=== PATIENT | female | born 1990 | race Caucasian/White ===

== ENCOUNTER 2022-08-15 11:26 | Outpatient (CLI) | payer OTHER, SELFPAY ==
[2022-08-15 09:29] LABS: Cholesterol* 189 mg/dL (90-199); Triglycerides* 118 mg/dL (40-149)
[2022-08-15 09:30] LABS: HDL Cholesterol* 69 mg/dL (>=50); LDL Cholesterol Calculated 96 mg/dL (<100)
== END 2022-08-15 11:27 | disposition home or self-care (01) ==
PROVIDERS: PCP Family Medicine; Visit Provider Family Medicine
DX: Z13.6 Encounter for screening for cardiovascular disorders (principal)
CPT/HCPCS: 80061

== ENCOUNTER 2022-09-06 22:18 | Outpatient (CLI) | payer OTHER, SELFPAY ==
--- OUTSIDE RECORDS SUMMARY | 2022-09-06 22:23 | XMS_ITS | Clinical Summary ---
:1990 Author Organization [employer] Address [address] [place] [address] Phone Care Team Providers Name Role Phone Rosario Luevano APRN, KAEL Primary Care Provider [phone] Allergies Active Allergy Reactions Severity Noted Date Comments Cefaclor Hives 12/09/2016 Medications Medication Sig Dispensed Refills Start Date End Date Status norethindrone (Micronor, Take 1 Tablet by 28 Tablet 0 02/23/20 21 Active Faith, Jahaira) 0.35 MG mouth one time a tabletIndications: Oral day. contraceptive pill surveillance traZODone (Desyrel) 50 Take 1 Tablet by 30 Tablet 0 02/22/2021 Active MG tabletIndications: mouth at Anxiety, Difficulty bedtime. sleeping Active Problems Problem Noted Date Dysmenorrhea 12/09/2016 Immunizations Name Administration Dates Next Due Hepatitis A, Ped/Adolescent 2 dose 01/11/2008, 05/30/2007 Hepatitis B, Pediatric/adolescent 02/10/2003, 01/09/2003 Hib PRP OMP (PedvaxHib) 08/04/2003 Influenza Fluzone (6 months - 64 09/09/2019 (Deferred: Inval id Dose - Years) Quad PF Syringe (Flu Clinic) [facility]) MMR 02/10/2003 Meningococcal MPSV4 (Menomune) 05/10/2005 TD >7yrs With Preservative 10/09/2001 Tdap (7 years and older) 11/01/2011 Surgical History Surgery Date Site/Laterality Comments WISDOM TOOTH EXTRACTION Medical History Medical History Date Comments Anxiety Dysmenorrhea Family History Medical History Relation Comments No Known Problems Father Breast Cancer Maternal Aunt Cardiovascular Disease Maternal Grandfather Breast Cancer Maternal Grandmother and 3/4 sisters Musculo-skeletal Disease Mother Fusions - scoli osis, MVA Ophthalmic Disease Paternal Grandmother glaucoma Colon Cancer Negative Family Hx Diabetes Negative Family Hx Relation Status Comments Father Alive Maternal Aunt Maternal Grandfather Maternal Grandmother Mother Alive Paternal Grandfather Paternal Grandmother Alive Social History Tobacco Use Types Packs/Day Years Used Date Smoking Tobacco: Never Smokeless Tobacco: Never Alcohol Use Standard Drinks/Week Comments Yes 0 (1 standard drink = 0.6 oz pure alcoho l) Socially, minimally Alcohol Habits Answer Date Recorded How often do you have a drink containing alcohol? 2-3 times a week 03/15/2019 How many drinks containing alcohol do you have on a 1 or 2 03/15/2019 typical day when you are drinking? How often do you have six or more drinks on one Never 03/15/2019 occasion? Financial Resource Strain Answer Date Recorded How hard is it for you to pay for the very basics like Not v favian hard 03/20/2020 food, housing, medical care, and heating? Food Insecurity Answer Date Recorded Within the past 12 months, you worried that your food would Never true 03/20/2020 run out before you got money to buy more. Within the past 12 months, the food you bought just didn't N ever true 03/20/2020 last and you didn't have money to get more. Transportation Needs Answer Date Recorded In the past 12 months, has lack of transportation kept you f rom No 03/20/2020 medical appointments or from getting medications? In the past 12 months, has lack of transportation kept you f rom No 03/20/2020 meetings, work, or getting things needed for daily living? Sex Assigned at Date Recorded Female 03/20/2020 9:43 AM CDT Obstetrics History Para Term AB IAB SAB Ectopic Molar Multiple Livin g Live Births 0 0 0 0 0 0 0 0 0 0 Last Filed Vital Signs Vital Sign Reading Time Taken Comments Blood Pressure 104/70 03/15/2019 2:27 PM CDT Pulse 90 03/15/2019 2:27 PM CDT Temperature 36.7 ??C (98.1 ??F) 03/15/2019 2:27 PM CDT Respiratory Rate 18 01/19/2019 12:07 AM CDT Oxygen Saturation 100% 03/15/2019 2:27 PM CDT Inhaled Oxygen Concentration - - Weight 45.4 kg (100 lb) 03/15/2019 2:27 PM CDT Height 162.6 cm (5' 4) 03/15/2019 2:27 PM CDT Body Mass Index 17.16 03/15/2019 2:27 PM CDT Plan of Treatment Health Maintenance Due Date Last Done Comments Last pap w/ HPV Testing 1990 COVID-19 Vaccine (#1) 07/01/1991 Cervical Cancer Screening 02/06/2021 Last pap w/o HPV Testing 02/06/2021 02/06/2018, 02/06/2018 TETANUS (Standing Order) 11/01/2021 11/01/2011, 10/09/2001 Influenza Vaccine Seasonal 06/30/2022 (Standing Order) (#1) PERTUSSIS (Standing Order) Completed 11/01/2011 Pneumococcal/PCV Vaccine: Aged Out No landon damion eligible based Pediatrics (0-5 yrs) and on gin ent's age to At-Risk Patients (6-64 yrs) comp lete this topic (Standing Order) Insurance Payer Benefit Plan / Subscriber Effective Phone Address Type Group ID Dates MEDICA ESSENTIA CHOICE [id number] 06/30/2019-Pr [address] d[address] CARE MEDICA esent [id number] [place] [address] [facility] [id number] 02/28/2020-Pr [phone] [address] [facility] PRIME esent [phone] [facility] SARITA DANIELSON [phone] (Home) SARITA Mantilla [phone] (Work) Shivani Meyer Third Constitution Party Self [address] Liability (Home) SARITA Mantilla [phone] (Work) Care Teams Dredge Pipe Installer Relationship Specialty Start Date End Date Rosario Luevano, AQUATIC INSTRUCTOR, BENEFIT AUTHORIZER PCP - General Family Medicine 03/20/[address] [place] [address]
--- OUTSIDE RECORDS SUMMARY | 2022-09-06 22:24 | XMS_ITS | Encounter Summary ---
:1990 Author Organization [employer] Address [address] [place] [address] Phone Care Team Providers Name Role Phone Gerda Gan APRN, TWIN Primary Care Provider [phone] Encounter Details Date Type Department Care Team Description 02/06/2018 Orders Only [employer]-52ND Amrita Howard, Or vivek contraceptive pill [facility] FAM[facility] TAMP[address] MACH[address] FORMS surveil tigre (Primary MEDICINE Dx) [address] [place] [address] Social History Tobacco Use Types Packs/Day Years [...] Date Recorded Female 03/20/2020 9:43 AM CDT documented as of this encounter Ordered Prescriptions Prescription Sig Dispensed Refills Start Date End Date norethindrone-ethinyl Take 1 Tab by 3 Package 3 02/06/2018 12/26/2018 estradiol (JUNEL FE 11/18) mouth one time a 1-20 MG-MCG oral day. tabletIndications: Oral contraceptive pill surveillance documented in this encounter Plan of Treatment Not on filedocumented as of this encounter Visit Diagnoses Diagnosis Oral contraceptive pill surveillance - P rimary Surveillance of previously prescribed co ntraceptive pill documented in this encounter Discontinued Medications Medication Sig Discontinue Reason Start Date End Date norethindrone-ethinyl Take 1 Tab by Changed to an 02/06/201801/28 estradiol-iron (MARCHL FE mouth one time a alternate therapy .03/28) 1.5-30 MG-MCG day. oral tabletIndications: Contraceptive Therapy documented as of this encounter Care Teams Natural Resources Technician Relationship Specialty Start Date End Date Gerda Gan APRN, DNP PCP - General Family Medicine 02/06/18 03/19/[address] [place] [address] documented as of this encounter
--- OUTSIDE RECORDS SUMMARY | 2022-09-06 22:24 | XMS_ITS | Encounter Summary ---
:1990 Author Organization [employer] Address [address] [address] Phone Care Team Providers Name Role Phone Margret Gan APRN, TWIN Primary Care Provider [phone] Reason for Visit Reason Comments Refill Request Encounter Details Date Type Department Care Team Description 03/11/2019 Telephone Opentopic [facility] Belkys Molina efill Refill Request [facility] [place] [address] [place] [address] Social History Tobacco Use Types Packs/Day Years [...] AM CDT documented as of this encounter Miscellaneous Notes Telephone Encounter - Ji Conklin HUC - 04/18/2019 9:57 AM CDT Patient completed an office visit on 03/15/19. Encounter actions will be completed by Registry Management Teams. Telephone Encounter - Naseem Reina - 03/11/2019 6:04 PM CDT SCHEDULE THE FOLLOWING: - OFFICE VISIT BY: Now (Due as of 08/05/2018 for multiple medications including traZODone (DESYREL) 50 MG tablet) - LAST QUALIFYING VISIT WITH MARGRET GAN: 02/06/2018 - NEXT SCHEDULED VISIT: None - NEXT LAB APPOINTMENT: None Powered by [employer], Reference: [id number], 03/11/2019 6:04:45 PM CDT, Pool: SANGEETHA ([id number]) documented in this encounter Plan of Treatment Not on filedocumented as of this encounter Visit Diagnoses Not on filedocumented in this encounter Care Teams Manager Estate Relationship Specialty Start Date End Date Margret Gan, INSURANCE HEALTHCARE CONSULTANT, DNP PCP - General Family Medicine 02/06/18 03/19/[address] [place] [address] documented as of this encounter
--- OUTSIDE RECORDS SUMMARY | 2022-09-06 22:24 | XMS_ITS | Encounter Summary ---
:1990 Author Organization [employer] Address [address] [address] Phone Care Team Providers Name Role Phone Gerda Gan APRN, DNP Primary Care Provider [phone] Reason for Visit Reason Comments Refill Request Encounter Details Date Type Department Care Team Description 01/29/[address] [facility] any A, Refill Request CLINIC [facility] [place], DISTRICT RESOURCE OFFICER [address] [place] [address] [place] [address] [place] [address] [phone] (Wo rk) Social History Tobacco Use Types Packs/Day Years [...] Sig Dispensed Refills Start Date End Date traZODone (Desyrel) 50 MG TAKE 1 TAB BY MOUTH 30 Tab 0 0 01/29/2020 03/20/2020 tablet AT BEDTIME. documented in this encounter Miscellaneous Notes Telephone Encounter - Utility, Refill Wizard - 01/29/2020 12:37 PM CDT traZODone (Desyrel) 50 MG tablet [Pharmacy Med Name: TRAZODONE 50 MG TAB ZYD####] Depression -> If patient has a history of depression, ensure it was assessed within the last 12 months. -> Refill x 3 months (until due for an office visit) Last qualifying visit: 03/15/2019 (with LINNEA MATHEW) Next scheduled visit: 03/20/2020 (in Family Practice) Last ordered by LINNEA MATHEW: 03/15/2019 (320 days ago) QTY: 90, Refills: 3, Sig: take 1 tab by mouth at bedtime. (unchanged) Last fill date from pharmacy: 12/06/2019 Powered by [employer], Reference: [id number], 01/29/2020 12:37:06 PM CDT, Pool: SANGEETHA ([id number]) documented in this encounter Plan of Treatment Not on filedocumented as of this encounter Visit Diagnoses Not on filedocumented in this encounter Discontinued Medications Medication Sig Discontinue Reason Start Date End Date traZODone (DESYREL) 50 MG Take 1 Tab by mouth 03/15/20 19 01/29/2020 tablet at bedtime. documented as of this encounter Care Teams Campus Rep Relationship Specialty Start Date End Date Gerda Gan APRN, DNP PCP - General Family Medicine 02/06/18 03/19/[address] [place] [address] documented as of this encounter
--- OUTSIDE RECORDS SUMMARY | 2022-09-06 22:24 | XMS_ITS | Encounter Summary ---
:1990 Author Organization [employer] Address [address] [address] Phone Care Team Providers Name Role Phone Gerda Gan APRN, TWIN Primary Care Provider [phone] Reason for Visit Reason Onset Date Comments MyChart Authorization 03/17/2020 Encounter Details Date Type Department Care Team Description 03/17/2020 Telephone [employer]-52DE Evelyn Love Authorization [facility] N [address] [place] [place] [address] Social History Tobacco Use Types Packs/Day Years [...] this encounter Miscellaneous Notes Telephone Encounter - Evelyn Love - 03/17/2020 4:40 PM CDT Left message regarding patient's upcoming appointment with Rosario Luevano on 03-20-20 at 10:30am. Rosario would like patient to get a [employer] activation code so she can have her appointment switched over to a virtual visit. documented in this encounter Plan of Treatment Not on filedocumented as of this encounter Visit Diagnoses Not on filedocumented in this encounter Care Teams Cable Ferryboat Operator Relationship Specialty Start Date End Date Gerda Gan APRN, DNP PCP - General Family Medicine 02/06/18 03/19/[address] [place] [place] [address] documented as of this encounter
--- OUTSIDE RECORDS SUMMARY | 2022-09-06 22:24 | XMS_ITS | Encounter Summary ---
:1990 Author Organization [employer] Address [address] [address] Phone Care Team Providers Name Role Phone Margret Gan APRN, [facility] Primary Care Provider [phone] Reason for Visit Reason Comments Refill Request Encounter Details Date Type Department Care Team Description 12/26/[address] [facility] Margret Gan APRN, Refill Request [facility] [address] [place] [address] [address], [place] [address] [place] [address] [phone] (Wo rk) Social History Tobacco Use Types [...] Dispensed Refills Start Date End Date norethindrone-ethinyl TAKE 1 TAB BY 84 Tab 0 12/26/2018 03/12/2019 estradiol (11/18) MOUTH ONE TIME A 1-20 MG-MCG oral DAY tabletIndications: Oral contraceptive pill surveillance documented in this encounter Miscellaneous Notes Telephone Encounter - Utility, Refill Wizard - 12/26/2018 10:34 AM CST norethindrone-ethinyl estradiol (11/18) 1-20 MG-MCG oral tablet [Pharmacy Med Name: [id number] 1-0.02MYL] Hormone Replacement & Contraceptives -> Refill x 3 months (until due for an office visit) Last qualifying visit: 02/06/2018 (with MARGRET GAN) Next scheduled visit: None Last ordered by MARGRET GAN: 02/06/2018 (323 days ago) QTY: 3, Refills: 3, Sig: take 1 tab by mouth one time a day. (unchanged) Last fill date from pharmacy: 10/04/2018 PATIENT IS DUE FOR: - OFFICE VISIT for multiple medications including traZODone (DESYREL) 50 MG tablet (Sent to RX Scheduling) Powered by [employer], Reference: [id number], 12/26/2018 10:34:44 AM TRAIN OPERATOR, Pool: SANGEETHA ([id number]) N OPERATOR documented in this encounter Plan of Treatment Not on filedocumented as of this encounter Visit Diagnoses Diagnosis Oral contraceptive pill surveillance Surveillance of previously prescribed co ntraceptive pill documented in this encounter Discontinued Medications Medication Sig Discontinue Reason Start Date End Date norethindrone-ethinyl Take 1 Tab by 02/06/201812/26 estradiol (11/18) mouth one time a 1-20 MG-MCG oral day. tabletIndications: Oral contraceptive pill surveillance documented as of this encounter Care Teams Cooler Operator Relationship Specialty Start Date End Date Margret Gan APRN, DNP PCP - General Family Medicine 02/06/18 03/19/[address] [place] [address] documented as of this encounter
--- OUTSIDE RECORDS SUMMARY | 2022-09-06 22:24 | XMS_ITS | Encounter Summary ---
:1990 Author Organization [employer] Address [address] [address] Phone Care Team Providers Name Role Phone Gerda Gan APRN, TWIN Primary Care Provider Reason for Visit Reason Comments Suture Removal Suture removal from lacterat ion repair of left middle finger. Nurse visit. Encounter Details Date Type Department Care Team Description 01/29/2019 [facility] (Suture VISIT CLINIC WALK-IN CLINI C removal from [address] lacteration repair of [address] [place] [address] Nurse visit. ) [phone] Social History Tobacco Use Types Packs/Day Years [...] AM CDT documented as of this encounter Progress Notes Madhavi Shaffer LPN - 01/29/2019 3:15 PM CDT Patient presents to clinic today for removal of sutures from laceration of left middle finger done by Checo Shen DO on 01/19/19. Patient denies any problems with wound. Wound edges are clean, dry, well approximated. Would has some dry blood around it but wound appears clean. Some scabbing of the site. sutures removed with some difficulty. Sutures were covered with some scabbing and the patient had some discomfort with removal. No signs of infection. Steri-strips not needed. Area was wrapped again with non-adherent dressing and wrapped with 1 inch coban to protect it. Patient will continue to monitor for signs of infection or other problems. Patient will call back with questions or concerns on an as needed basis. Patient tolerated procedure well. Madhavi Shaffer LPN 01/29/2019 3:24 PM documented in this encounter Plan of Treatment Not on filedocumented as of this encounter Procedures Procedure Name Priority Date/Time Associated Diagnosis Comme nts NO LOS CHARGE Routine 01/29/2019 3:21 PM CDT Encounter for rem oval of sutures documented in this encounter Visit Diagnoses Diagnosis Encounter for removal of sutures - Prima ry documented in this encounter Orders Procedures Count Last Ordered Date First Ordered Date NO LOS CHARGE 1 01/29/2019 documented in this encounter Care Teams Tuber Operator Relationship Specialty Start Date End Date Gerda Gan, SURVEY RESEARCH TEACHER, DNP PCP - General Family Medicine 02/06/18 03/19/[address] [place] [address] documented as of this encounter
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
--- OUTSIDE RECORDS SUMMARY | 2022-09-06 22:24 | XMS_ITS | Encounter Summary ---
:1990 Author Organization [email or web address] Address [address] [address] Phone Care Team Providers Name Role Phone Margret Gan APRN, TWIN Primary Care Provider [phone] Reason for Visit Reason Comments Refill Request Encounter Details Date Type Department Care Team Description 12/26/2018 Telephone [employer] [facility] Belkys Molina efill Refill Request [facility]INIC [facility] [address] [place] [address] Social History Tobacco Use Types Packs/Day Years [...] this encounter Miscellaneous Notes Telephone Encounter - Naseem Reina - 12/26/2018 10:34 AM CST SCHEDULE THE FOLLOWING: - OFFICE VISIT BY: Now (Due as of 08/05/2018 for multiple medications including traZODone (DESYREL) 50 MG tablet) - LAST QUALIFYING VISIT WITH MARGRET GAN: 02/06/2018 - NEXT SCHEDULED VISIT: None - NEXT LAB APPOINTMENT: None Powered by [employer], Reference: [id number], 12/26/2018 10:34:44 AM CREDIT OR LOANS OFFICER, Pool: SANGEETHA ([id number]) IT OR LOANS OFFICER documented in this encounter Plan of Treatment Not on filedocumented as of this encounter Visit Diagnoses Not on filedocumented in this encounter Care Teams Router Tender Relationship Specialty Start Date End Date Margret Gan, SULAIMAN, DNP PCP - General Family Medicine 02/06/18 03/19/20 [facility] [place] [id number] documented as of this encounter
--- OUTSIDE RECORDS SUMMARY | 2022-09-06 22:24 | XMS_ITS | Encounter Summary ---
:1990 Author Organization [email or web address] Address [address] [place] [address] Phone Care Team Providers Name Role Phone Rosario Luevano APRN, CHEMICAL EDUCATOR Primary Care Provider Reason for Visit Reason Comments Imm/Inj Temp Excursion [facility] Encounter Details Date Type Department Care Team Description 03/20/2020 Notes [facility] Melba Celestin RN Imm/I nj (Temp Excursion IMMUNIZATIONS [facility]) [address] [place] [address] Social History Tobacco Use Types Packs/Day Years [...] documented as of this encounter Progress Notes Melba Celestin RN - 03/20/2020 7:31 AM CDT Revaccination Needed chart review completed on 03/20/2020. Affected products (vaccines) for this patient include: Influenza. I have marked 1 (#) individual vaccine administrations as invalid. Influenza: 09/09/2019: [facility]in, Ernestina Desai CNP Patient scheduled for upcoming visit on 03/20/2020. The vaccines to be given at that revaccination visit are: Influenza. documented in this encounter Plan of Treatment Not on filedocumented as of this encounter Visit Diagnoses Not on filedocumented in this encounter Care Teams Customer Relations Advisor Relationship Specialty Start Date End Date Rosario Luevano APRN, CHEMICAL EDUCATOR PCP - General Family Medicine 03/20/[address] [place] [address] documented as of this encounter
--- OUTSIDE RECORDS SUMMARY | 2022-09-06 22:24 | XMS_ITS | Encounter Summary ---
:1990 Author Organization [employer] [facility] Address [address] [place] [address] Phone Care Team Providers Name Role Phone YudithNicole romeroaly Porter APRN, CNP Primary Care Provider [phone] Reason for Visit Reason Comments Camp Physical Pt. will be chaparoning part icipants in [facility] Encounter Details Date Type Department Care Team Description 06/06/2017 Office Visit [employer] [facility] Ancillary, Osgcl P hysical exam for camp CLINIC WALK-IN CLINI C Walk In Clinic (Primary Dx) [address] [facility] [place] [phone] Social History Tobacco Use Types Packs/Day Years Used Date Smoking Tobacco: Never Smokeless Tobacco: Never Alcohol Habits Answer Date Recorded How often [...] Sign Reading Time Taken Comments Blood Pressure 109/63 06/06/2017 5:17 PM CDT Pulse 69 06/06/2017 5:17 PM CDT Temperature 36.8 ??C (98.3 ??F) 06/06/2017 5:17 PM CDT Respiratory Rate 14 06/06/2017 5:17 PM CDT Oxygen Saturation 100% 06/06/2017 5:17 PM CDT Inhaled Oxygen Concentration - - Weight 45 kg (99 lb 3.2 oz) 06/06/2017 5:17 PM CDT Height 162.6 cm (5' 4) 06/06/2017 5:17 PM CDT Body Mass Index 17.03 06/06/2017 5:17 PM CDT documented in this encounter Progress Notes Misty Alonzo PA-C - 06/07/2017 9:06 AM CDT Chief Complaint Patient presents with ??? [place] Physical Pt. will be chaparoning participants in [facility] HPI: Shivani is a 26 year old female who presents for a [place] physical and review of immunizations. 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 She has chaperoned the past couple years. No concerns. Outpatient Prescriptions Marked as Taking for the 06/06/17 encounter (Office Visit) with Ancillary, [facility] Medication Sig ??? norethindrone-ethinyl estradiol-iron () 1.5-30 MG-MCG oral tablet Take 1 Tab by mouth one time a day. ??? minocycline (DYNACIN) 100 MG tablet Take one tablet by mouth twice daily for two months, then once daily for two weeks, then once [id number] for two weeks, then stop. ??? tretinoin (RETIN-A) 0.025 % cream Apply topically at bedtime. Apply a thin layer to entire face nightly, to [id number], or as tolerated. Increase gradually with a goal of every night, or at least four nights a week. ALLERGIES/DRUG SENSITIVITIES: Allergies as of 06/06/2017 - Reviewed 06/06/2017 Allergen Reaction Noted ??? Ceclor [cefaclor] Hives 12/09/2016 IMMUNIZATIONS: Immunization History Administered Date(s) Administered ??? Hepatitis A, Ped/Adolescent 2 dose 05/30/2007, 01/11/2008 ??? Hepatitis B, Pediatric/adolescent 01/09/2003, 02/10/2003 ??? Hib PRP OMP (PedvaxHib) 08/04/2003 ??? MMR 02/10/2003 ??? Meningococcal MPSV4 (Menomune) 05/10/2005 ? ? TD >7yrs With Preservative 10/09/2001 ? ? Tdap >7 years 11/01/2011 ROS: Negative, feels well. Physical Exam: Vitals: 06/06/17 1717 BP: 109/63 Pulse: 69 Temp: 36.8 ??C (98.3 ??F) TempSrc: Oral Resp: 14 Height: 5' 4 (1.626 m) Weight: 99 lb 3.2 oz (45 kg) SpO2: 100% BMI (Calculated): 17.03 GENERAL APPEARANCE: Healthy; alert and oriented X3; no acute distress; well developed; well nourished; well oriented SKIN: Normal without rashes, moles, or suspicious lesions HEAD: Atraumatic; normocephalic; without lesions EYES: Conjunctiva, corneas and eyelids normal; pupils equal, round, reactive to light and accommodation (PERRLA); extraocular movements intact (EOMI) NECK: Supple with no nodes, jugular venous distention, thyromegaly or bruits LUNGS: normal respiratory rate, normal respiratory rhythm and clear to auscultation HEART: Normal with regular rhythm; normal heart sounds and no murmurs PSYCHIATRIC: Mental status normal; judgment and insight good; mood and affect normal; no psychosis present; no hallucinations; no obvious personality disorder ASSESSMENT: (Z02.89) Physical exam for [place] (primary encounter diagnosis) PLAN: Cleared to participate in [place]. See scanned in document. - Immunization status: up to date (excluding HPV) and documented. - Weight Management / BMI follow-up plan:BMI noted and no action needed at this time. documented in this encounter Plan of Treatment Not on filedocumented as of this encounter Visit Diagnoses Diagnosis Physical exam for camp - Primary Other general medical examination for ad ministrative purposes documented in this encounter Historical Medications This list may reflect changes made after this encounter. Medication Sig Dispensed Refills Start Date End Date norethindrone-ethinyl Take 1 Tab by 0 02/06/2018 estradiol-iron (JUNEL FE mouth one time a ) 1.5-30 MG-MCG oral day. tabletIndications: Contraceptive Therapy added in this encounter Care Teams Technical Recruiter Relationship Specialty Start Date End Date Minal Castro, WHEEL ALIGNMENT TECHNICIAN, WIRE FRAME DIPPER PCP - General Family Medicine 12/09/16 02/05/18 [facility] [place] [address] documented as of this encounter
--- OUTSIDE RECORDS SUMMARY | 2022-09-06 22:24 | XMS_ITS | Encounter Summary ---
:1990 Author Organization [employer] Address [address] [address] Phone Care Team Providers Name Role Phone Gerda Gan APRN, TWIN Primary Care Provider [phone] Reason for Visit Reason Comments Eye Exam Pt here for annual eye exam. Feels tired or pressure behind her eyes Encounter Details Date Type Department Care Team Description 08/19/2019 Office Visit Yonas Duran, OD [facility] Dx[facility] [address] Myopia of both eyes [facility] [address] [place] [address] [place] [address] [phone] Social History Tobacco Use Types Packs/Day Years [...] documented as of this encounter Progress Notes Yonas Cope, OD - 08/19/2019 2:00 PM CDT Shivani Meyer is a 28 year old female, here for: Chief Complaint Patient presents with ??? Eye Exam Pt here for annual eye exam. Feels tired or pressure behind her eyes HPI: PP presents for cmpee. LASIK at [facility] 2 years ago. Review of Systems (N/A = not assessed) Eye: Neurologic: Cardiovascular Endocrine: [] Not Assessed [] Cataracts [] Glaucoma [] Macular Degeneration [] Flashes/Floaters [] Other: [x] Negative [] Not Assessed [] Headache/migraine [] Numbness / tingling [] Weakness [] Multiple Sclerosis [] Other: [x] Negative [] Not Assessed [] Chest Pain [] Palpitations [] Hypertension [] Highcholesterol [] Other: [x] Negative [] N/A [] Diabetes [] Thyroid [] PCOS [] Other: Dermatologic: HENT: Psychiatric: AutoImm. [x] Negative [] Not Assessed [] Skin lesions that grow or bleed spontaneously [] Rash [] Eczema [] Other: [x] Negative [] Not Assessed [] Ringing in ears [] Hearing loss [] Dry mouth [] Jaw pain w/chewing [] Other: [x] Negative [] Not Assessed [] Anxiety [] Depression [] ADD/ADHD [] Other: [x] Negative [] N/A [] Arthritis [] Lupus [] Sjogrens [] Other: Respiratory: Hematologic: Musculoskeletal Other: [x] Negative [] Not Assessed [] Shortness of breath [] Cough [] Asthma [] Other: [x] Negative [] Not Assessed [] Bruising/bleeding [] History of Anemia [] Other: [x] Negative [] Not Assessed [] Muscle aches [] Joint pain [] Other: [x] Negative [] [] Nursing [] Cancer [] Other: Gastrointestinal: Genitourinary: Constitutional: [x] Negative [] Not Assessed [] Abdominal pain [] Diarrhea/Constipation [] Nausea/Vomiting [] IBS [] Other: [x] Negative [] Not Assessed [] Pain with urination [] Blood in urine [] Other: [x] Negative [] Not Assessed [] Fevers / Chills [] Unexpected weight loss/gain [] Fatigue [] Other: Past Medical History: Diagnosis Date ??? Anxiety ??? Dysmenorrhea Allergies Allergen Reactions ??? Ceclor [Cefaclor] Hives Social History Socioeconomic History ??? Marital status: Single Spouse name: Not on file ??? Number of children: Not on file ??? Years of education: Not on file ??? Highest education level: Not on file Occupational History ??? Not on file Social Needs ??? Financial resource strain: Not on file ??? Food insecurity: Worry: Not on file Inability: Not on file ??? Transportation needs: Medical: Not on file Non-medical: Not on file Tobacco Use ??? Smoking status: Never Smoker ??? Smokeless tobacco: Never Used Substance and Sexual Activity ??? Alcohol use: Yes Frequency: 2-3 times a week Drinks per session: 1 or 2 Binge frequency: Never Comment: Socially, minimally ??? Drug use: No ??? Sexual activity: Yes Partners: Male control/protection: OCP Lifestyle ??? Physical activity: Days per week: Not on file Minutes per session: Not on file ??? Stress: Not on file Relationships ??? Social connections: Talks on phone: Not on file Gets together: Not on file Attends anabaptist service: Not on file Active member of club or organization: Not on file Attends meetings of clubs or organizations: Not on file Relationship status: Not on file ??? Intimate partner violence: Fear of current or ex partner: Not on file Emotionally abused: Not on file Physically abused: Not on file Forced sexual activity: Not on file Other Topics Concern ??? Not on file Social History Narrative She is . 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 From [employer] originally. Family History Problem Relation Age of Onset ??? Musculo-skeletal Disease Mother Fusions - scoliosis, MVA ??? No Known Problems Father ??? Breast Cancer Maternal Grandmother and 3/4 sisters ??? Cardiovascular Disease Maternal Grandfather ??? Ophthalmic Disease Paternal Grandmother glaucoma ??? Diabetes Negative Family Hx ??? Colon Cancer Negative Family Hx No results found for: HGA1C Assessment: (Z98.890) Hx of LASIK (primary encounter diagnosis) (H52.13) Myopia of both eyes Plan: No Rx, recheck 1 year unless sx sooner, she voiced understanding. Return in about 1 year (around 08/19/2020), or if symptoms worsen or fail to improve, for annual exam and PRN. Electronically signed by Yonas Cope, ALMITA 08/19/2019 2:39 PM [facility] [address] [place], [place] [address] [place] [address] documented in this encounter Plan of Treatment Not on filedocumented as of this encounter Procedures Procedure Name Priority Date/Time Associated Diagnosis Comme nts REFRACTION Routine 08/19/2019 2:39 PM CDT Myopia of both eyes Hx of LASIK documented in this encounter Visit Diagnoses Diagnosis Hx of LASIK - Primary Other states following surgery of eye an d adnexa Myopia of both eyes Myopia documented in this encounter Orders Procedures Count Last Ordered Date First Ordered Date REFRACTION 1 08/19/2019 documented in this encounter Eye Exam Visual Acuity (Snellen - Linear) Right eye Left eye Dist sc 20/20 20/20 Tonometry (Icare, 2:02 PM) Right eye Left eye Pressure 12 13 Pupils Dark Light APD Right eye 5 3 - Left eye 5 3 - Visual Diggs Right eye Left eye Full Full Extraocular Movement Right eye Left eye Full, Ortho Full, Ortho Dilation Both eyes: 1.0% Paremyd @ 2:17 PM Keratometry K1 Binger K2 Binger Right eye 40.75 180 41.25 090 Left eye 40.75 170 41.25 080 External Exam Right eye Left eye External Normal Normal Slit Lamp Exam Right eye Left eye Lids/Lashes Normal Normal Conjunctiva/Sclera White and quiet White and quiet Cornea Rare SPK Rare SPK Anterior Chamber Deep and quiet Deep and quiet Iris Round and reactive Round and reactive Lens Clear Clear Vitreous Normal Normal Fundus Exam Right eye Left eye Disc Normal Normal C/D Ratio 0.25 0.25 Macula Normal Normal Vessels Normal Normal Periphery Normal Normal Manifest Refraction #1 Sphere Cylinder Binger Dist VA Right eye -0.25 Sphere 20/20 Left eye -0.25 Sphere 20/20 Manifest Refraction #2 (Auto) Sphere Cylinder Binger Dist VA Right eye -0.25 +0.00 000 Left eye -0.25 +0.00 000 Care Teams Sports Trainer Relationship Specialty Start Date End Date Gerda Gan, SULAIMAN, DNP PCP - General Family Medicine 02/06/18 03/19/[address] [place] [id number] documented as of this encounter
--- OUTSIDE RECORDS SUMMARY | 2022-09-06 22:24 | XMS_ITS | Encounter Summary ---
:1990 Author Organization [employer] [facility] Address [address] [address] Phone Care Team Providers Name Role Phone Gerda Gan APRN, DNP Primary Care Provider [phone] Reason for Visit Reason Comments Physical would like to discuss anxiet y, having trouble with sleeping Establish Care Encounter Details Date Type Department Care Team Description 02/06/[address] [facility] Gerda Gan Rout ine general medical examination at a health care facility (Primary Dx); [facility] Screening for cervical cancer; MEDICINE [address] Oral contraceptive pill [facility]; [address] [facility] Cystic acne; [place] [address] [place] [address] Sleep disturbance; [phone] Anxiety (Work) Social History Tobacco Use Types Packs/Day Years [...] Sign Reading Time Taken Comments Blood Pressure 112/60 02/06/2018 12:25 PM CDT Pulse 84 02/06/2018 12:25 PM CDT Temperature 35.9 ??C (96.6 ??F) 02/06/2018 12:25 PM CDT Respiratory Rate 16 02/06/2018 12:25 PM CDT Oxygen Saturation 100% 02/06/2018 12:25 PM CDT Inhaled Oxygen Concentration - - Weight 46.5 kg (102 lb 9.6 oz) 02/06/2018 12:25 PM CDT Height 162.6 cm (5' 4) 02/06/2018 12:25 PM CDT Body Mass Index 17.61 02/06/2018 12:25 PM CDT documented in this encounter Patient Instructions Patient InstructionsGerda Gan APRN, DNP - 02/06/2018 12:38 PM CDT Control Pills (Oral Contraceptives) What are control pills? control pills (oral contraceptives) are a method of control that uses hormones to prevent . The man-made female hormones in the pills change a woman's natural hormone levels and prevent her ovaries from releasing an egg each month. The cervix also produces less and thicker mucus so that sperm cannot easily enter the uterus. In addition, the lining of the uterus becomes thinner, so it would be more difficult for a fertilized egg to stay in the uterus. The most commonly used pills are combined pills. They contain man-made forms of 2 hormones: estrogen and progesterone. There is also a progesterone-only pill (the mini-pill), but it is not as effective and causes a lot of blood spotting between menstrual periods. How are the pills used? The combined pills usually come in a package of 28 pills. They are also available in 21-pill packs. You and your health care provider will decide which type of package is best for you. Your provider will probably advise you to start taking the pills on the Monday after your period has started or on the first day of your next period, depending on your preference. If you are using the 21-pill pack, take 1 pill every day for 3 weeks. Stop taking the pills for 7 days and then start a new pack. If you are using the 28-day package, take 1 pill every day for 4 weeks and then start a new package the next day. The last 7 pills contain no medication for control; they just keep you in the habit of taking a pill every day. It is important to try to take the pills at approximately the same time every day. Your period will usually occur soon after the last hormone-containing pill is taken. Some antibiotics can affect the way control pills work in your body. If you are taking antibiotics, tell your health care provider. You may need to use an additional form of control while you are taking antibiotics. What if I forget to take a pill? If you forget to take some of the pills, you will have menstrual bleeding at unpredictable times andyou may get . If you forget to take a pill, take it as soon as you remember and take your next pill at the usual time. If you miss 2 consecutive pills, take 2 pills each day for 2 days and then go back to your regular schedule. If you miss 3 or more pills, stop taking the pills and use a different control method until your next menstrual cycle starts. If your menstrual cycle doesn't start on schedule, check with your health care provider. If you have forgotten to take 2 or more pills and you have missed a period, you might be . You should stop taking the pills and use other forms of control until you are sure you are not . Do not stop taking the pills if you have taken them correctly. When can I start taking oral contraceptives after having a baby? If you are breast-feeding your baby, you should not take oral contraceptives until you have a good milk supply. This will take about 4 to 6 weeks after the . Then, a low-dose pill or progesterone-only pill may possibly be used. Talk to your health care provider about when you can start the pills again. Also, remember that breast-feeding is not sure protection against , so use another form of control before you start taking control pills again. If you are not breast-feeding your baby, you may be able to start taking control pills 1 to 2 weeks after the or when you begin menstruating again. Use condoms and spermicides until you start the pills. Be sure to check with your health care provider before you start taking control pills again. What are the benefits? The main benefit of control pills is that they are effective in preventing but do not interrupt lovemaking. On average, no more than 5 of every 100 women taking control pills become at the end of 1 year. The pills also may decrease the risk of uterine and ovarian cancer, ovarian cysts, rheumatoid arthritis, and ectopic (tubal) . Also, when you use control pills, your periods are regular,data manager, and less painful. There is also a lower incidence of pelvic inflammatory disease (PID), fibrocystic changes in the breasts, and fibroadenoma (benign tumors) of the breast. Generally, women who have no gynecologic problems before they start taking oral contraceptives have no trouble becoming after they stop taking control pills, regardless of how long they have been taking them. There is no advantage to taking a break from control pills unless you have problems specifically related to the pills. When you want to get , it is recommended that you wait until you have had at least 2 normal menstrual periods after stopping the pills. What are the disadvantages? One disadvantage of control pills is that you must remember to take a pill every day. Problems you may have while you are taking control pills include: irregular bleeding for the first few months after you start control pills nausea and vomiting weight gain breast swelling and tenderness increased appetite depression headaches scant or missed periods high blood pressure dizziness. Women who take control pills and smoke, especially those over 35 years old, have an increased risk of severe problems such as heart disease and blood clots. The heart disease could cause a heart attack. The blood clots may cause leg pain or swelling, chest pain, stroke, or . Have your blood pressure checked after you have taken the pills for 3 months. You should not smoke if you take control pills. control pills do not protect you from sexually transmitted diseases such as AIDS. Latex condoms are the only safe way to protect against AIDS. When should I call my health care provider? Call your health care provider if you have: leg pain or swelling loss of vision or double vision bleeding irregularities more headaches than usual numbness of arms, legs, or any other part of your body. Depression: Brief Version What is depression? Depression is a big change in your moods. You may feel sad and blue, even hopeless. You may not be interested in things you like to do. You may also have trouble eating, concentrating, and getting things done. If these feelings last for 2 weeks or more, you may have a depression that needs treatment. If you are not treated, the depression can last much longer or become more serious. What is the cause? No one knows just what causes depression. It may happen because the brain chemicals you need to feelgood are not balanced. It may happen more often in some families. You may also feel depressed because you: have lost a loved one have a medical illness are taking a medicine or drug that can cause depression have recently had surgery or given use alcohol or drugs. have lots of stress that you cannot control. What are the symptoms? You may have depression if you have 1 or both of these 2 symptoms most of the day, every day, for more than 2 weeks: You feel sad or blue. You may cry, feel tense, upset, or easily bothered. You are no longer interested in things you normally like to do. If you have major depression, you will also have at least 4 of the following symptoms. You do not feel like eating and have lost weight. Or you may want to eat more often and have gained weight. You have trouble sleeping or spend more time sleeping. You feel tired and do not have any energy. You feel nervous and restless. You have less desire for sex. You feel bad about yourself or guilty. You have trouble thinking clearly. You find it hard to remember things. You think about or hurting yourself. You may even plan or try suicide. You may have a hard time getting along with your friends or family. It's hard to feel good about yourself and others when you are depressed. How is it diagnosed? Your health care provider will: Listen to how you feel. He or she may also talk with someone close to you. Examine you. Ask about your medical history and about drug and alcohol use. Your provider may also do some blood tests. How is it treated? You need to get help. You may need counseling and medicine. Counseling can give you the support you need. It can help you feel less like you are out of control. Your counselor or therapist can help you see how you look at things. You can learn to see why and how you have negative thoughts and feelings. You can learn to change the way you think and feel. Medicines will usually start to help you feel better in about 3 to 6 weeks. You should take the medicine for at least 6 to 12 months. This will help keep depression from comingback. Do not stop taking your medicine until you and your health care provider decide you are ready. Your provider will then lower your doses over time. It is not a good idea to stop all of a sudden. You may need to keep taking the medicine for a long while or even for the rest of your life. If you get treatment early, you probably won't have to go to the hospital. But, it may be a good idea to stay in the hospital if: You want to hurt yourself or someone else. There are too many problems to face at home. It can be hard to get well if things are too stressful or hectic at home. You cannot take care of yourself at home. You have no support at home. How long will it take to get well? If you don't get treated, you may be depressed for a long time. The depression may keep coming back.If you do get the help you need, you should feel better in a few weeks. If you get depressed again, call your health care provider or counselor right away. The medicine may cause some side effects. Tell your health care provider about any problems you may have with the medicine. How can I take care of myself? Make sure you take your medicine and get counseling. You can also: Find out what activities make you feel better. Do those things. Join a support group. Do not spend too much time alone. Talk to your family and friends. Ask for help with your work when you need it. Set limits if people expect too much from you. It can also help to: Eat healthy foods. Stay away from alcohol or drugs. Exercise at least 3 times a week. Sleep 6 to 8 hours per night. Find time to relax every day. When you have stress, try to breathe deeply. Think often about the good things in your life. Trust that things will work for your good. Learn new and better ways to take care of problems. Before you use any kind of medicine, even control pills: Tell your health care provider if you take medicine for depression. Tell your health care provider if you have ever been treated for depression. Make sure the new medicine you need to take will not make your depression worse. If you feel that you could hurt yourself or someone else, call your health care provider or counselor right away. If you would like more information: Call the Depression and Bipolar Support [place] (DBSA) toll-free at . Or visit onlineat http://www.dbsalliance.org. Call the National Mental Health Association (NMHA) toll-free at 1-736-635-NM. Or visit online at http://www.NMHA.org. Developed by Dianna Ernandez R.N., M.N., and [employer]. Published by [employer]. This content is reviewed periodically and is subject to change as new health information becomes available. The information is intended to inform and educate and is not a replacement for medical evaluation, advice, diagnosis or treatment by a healthcare professional. Adult Health Advisor 2003.2 Index Adult Health Advisor 2002.2 Credits Copyright ?? 2002 [employer]. All rights reserved. CRISIS LINE NUMBERS: [place] Crisis Line: or . National Hopeline: 7-131-KPWFGQS or High Blood Pressure: Weight Control What is high blood pressure? High blood pressure, also called hypertension, is a condition in which your blood pressure is consistently higher than normal. Three or more blood pressure readings higher than 140/90 indicate high blood pressure. The upper, systolic (pumping) pressure may be high; the lower, diastolic (resting) pressure may be high; or both may be high. How is high blood pressure affected by weight? One of the most important causes of high blood pressure is overweight. Excess weight puts stress on the heart and lungs, forcing them to work harder. Water retention (usually from eating too much salt)also raises blood pressure. How is high blood pressure treated with weight control? If you are overweight, change your eating habits so that you lose 1 to 2 pounds a week until you reach your ideal weight. Even a modest weight loss of 5 to 10 pounds can help your blood pressure. Your diet needs to be low in fat, cholesterol, and salt. Limit the amount of alcohol you drink. A regular, moderate exercise program helps to control your weight. Exercise has many benefits besides weight loss. It increases your metabolism and sales up calories, thereby causing weight loss, reducing stress, and promoting good health. Exercise also lowers your cholesterol and blood sugar levels. Ask your health care provider for recommendations for an exercise program that is right for you. How long will the effects last? If you are overweight and have high blood pressure, you will need to control your blood pressure throughout your life. This will require lifelong blood pressure monitoring and treatment. Community agencies and [employer] programs are available to help you lose weight. Other support services and treatments that have been helpful to many people include: motivation and behavior modification courses group therapy nutrition counseling. How can I take care of myself? Follow the treatment plan prescribed by your health care provider. In addition: Stop smoking. Eat healthy, well-balanced meals that reduce your calorie intake enough for you to lose 1 to 2 pounds a week to reach and maintain normal weight. Reduce the salt, fat, cholesterol, and caffeine in your diet. Learn to use deep breathing and relaxation techniques to reduce stress. Exercise regularly, according to your health care provider's instructions. See your provider regularly to have your blood pressure checked. Consider buying a home blood-pressure monitor. What can I do to help prevent high blood pressure? To help prevent high blood pressure, you can: Maintain your ideal weight. Exercise regularly. Stop smoking, for general good health. Limit the amount of alcohol you drink. Developed by [employer]. Published by [employer]. Return for routine health maintenance exam. documented in this encounter Ordered Prescriptions Prescription Sig Dispensed Refills Start Date End Date tretinoin (RETIN-A) 0.025 Apply topically at 45 g 11 05/31/2018 % creamIndications: bedtime. Apply a Cystic acne thin layer to entire face nightly, to [id number], or as tolerated. Increase gradually with a goal of every night, or at least four nights a week. norethindrone-ethinyl Take 1 Tab by mouth 3 Package 3 02/0602/06/2018 estradiol-iron (JUNEL FE one time a day. 1) 1.5-30 MG-MCG oral tabletIndications: Contraceptive Therapy traZODone (DESYREL) 50 MG Take 1 Tab by mouth 30 Tab 0 0 02/06/2018 04/05/2018 tablet at bedtime. documented in this encounter Progress Notes Gerda Gan, SULAIMAN, DNP - 02/06/2018 12:38 PM CDT Chief Complaint Patient presents with ??? Physical would like to discuss anxiety, having trouble with sleeping ??? Establish Care REASON FOR VISIT: Shivani Meyer is a 27 year old female who presents for a general medical exam. HISTORY OF PRESENT ILLNESS: The following issues were addressed today: Routine healthcare maintenance Patient presents today with concerns of anxiety. Notes that this has overall been mild for her. However, does not that she has difficulty sleeping. Has been taking Advil PM but is worried about side effects of staying on the medication too long. Wondering if there are other treatment options available. Family history of anxiety in her mother. Uncertain if her Mother is taking any medication. Patient also is considering a in the next few years and does not want to be on any medication that could be a risk to . Patient is also requesting refill for combined oral contraceptive. Has been tolerating this well. Denies any history of migraine headaches with an aura, bleeding or clotting disorders, nonsmoker. Health maintenance: Patient is due for Pap smear today. Is up-to-date on tetanus vaccine. At this time, past medical history, current medications, allergies and drug sensitivities, immunizations, habits and life style, family history, and social history are reviewed and updated. Patient Active Problem List Diagnosis ??? Dysmenorrhea Past Medical History: Diagnosis Date ??? Anxiety Past Surgical History: Procedure Laterality Date ??? WISDOM TOOTH EXTRACTION Outpatient Prescriptions Marked as Taking for the 02/06/18 encounter (Office Visit) with Pineda Gan APRN, KAEL Medication Sig ??? Ibuprofen-Diphenhydramine Cit (ADVIL PM OR) Take by mouth. ??? norethindrone-ethinyl estradiol-iron () 1.5-30 MG-MCG oral tablet Take 1 Tab by mouth one time a day. ??? tretinoin (RETIN-A) 0.025 % cream Apply topically at bedtime. Apply a thin layer to entire face nightly, to [id number], or as tolerated. Increase gradually with a goal of every night, or at least four nights a week. ALLERGIES/DRUG SENSITIVITIES: Allergies as of 02/06/2018 - Reviewed 02/06/2018 Allergen Reaction Noted ??? Ceclor [cefaclor] Hives 12/09/2016 IMMUNIZATIONS: Immunization History Administered Date(s) Administered ??? Hepatitis A, Ped/Adolescent 2 dose 05/30/2007, 01/11/2008 ??? Hepatitis B, Pediatric/adolescent 01/09/2003, 02/10/2003 ??? Hib PRP OMP (PedvaxHib) 08/04/2003 ??? MMR 02/10/2003 ??? Meningococcal MPSV4 (Menomune) 05/10/2005 ? ? TD >7yrs With Preservative 10/09/2001 ? ? Tdap >7 years 11/01/2011 FAMILY HISTORY: Family History Problem Relation Age of Onset ??? Musculo-skeletal Disease Mother Fusions - scoliosis, MVA ??? No Known Problems Father ??? Breast Cancer Maternal Grandmother and 3/4 sisters ??? Cardiovascular Disease Maternal Grandfather ??? Ophthalmic Disease Paternal Grandmother glaucoma Family Status Relation Status ??? Mother Alive ??? Father Alive ??? Maternal Grandmother ??? Maternal Grandfather ??? Paternal Grandmother Alive ??? Paternal Grandfather SOCIAL HISTORY/HABITS/LIFESTYLE: Social History Social History ??? Marital status: [...] She is . 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 From [facility] originally. OBSTETRIC HISTORY: Obstetric History T0 L0 SAB0 TAB0 Ectopic0 Molar0 Multiple0 Live Births0 Review of Systems: Constitutional: no weight loss, fever, night sweats Integumentary: no rashes, pigmentation changes. Spot on left knee that is tender when she shaves. Head/eyes/ears/nose/throat: denies ear pain or loss of hearing, blurred or double vision, nasal discharge or sore throat. Headaches: tension - frontal - worse with stress - takes advil. Respiratory: no cough or shortness of breath Cardiovascular: no chest pains or palpitations Gastrointestinal: no dysphagia, abdominal pain, nausea, vomiting, change in bowel habits, melena, hematochezia Genitourinary: no change in urination or blood in urine Gynecologic: no abnormal vaginal bleeding, pelvic pain or vaginal discharge Musculoskeletal: no joint pain or swelling Nutrition: eats regular diet with adequate water intake Breasts: denies breast pain, tenderness, discharge, lumps Endocrine: no history of polyuria, polydipsia, skin or hair changes, heat or cold intolerance Lymphatic: denies lymph node tenderness or swelling Neurologic: no history of focal neurologic symptoms, spells, memory changes Psychologic: Positive for: sleep disturbance, anxiety Physical Exam: Vitals: 02/06/18 1225 BP: 112/60 Pulse: 84 Temp: 35.9 ??C (96.6 ??F) TempSrc: [facility] Resp: 16 Height: 5' 4 (1.626 m) Weight: 102 lb 9.6 oz (46.5 kg) SpO2: 100% BMI (Calculated): 17.61 GENERAL APPEARANCE: Healthy; alert and oriented X3; no acute distress SKIN: Normal without rashes, moles, or suspicious lesions HEAD: Atraumatic; normocephalic; without lesions EYES: Conjunctiva, corneas and eyelids normal; pupils equal, round, reactive to light and accommodation (PERRLA); extraocular movements intact (EOMI); fundi normal EARS: External ears normal; ear canals normal; tympanic membranes normal NOSE: Nares normal; septum midline; mucosa normal MOUTH/OROPHARYNX: Normal lips, tongue, buccal mucosa and pharynx without lesions NECK: Supple with no nodes, jugular venous distention, thyromegaly or bruits LUNGS: Normal respirations; good expansion with good diaphragmatic excursion; clear to auscultation with no extra sounds HEART: Regular rhythm and rate; S1 and S2 normal; no murmurs, heaves, thrills, clicks or rubs BREAST/FEMALE: not performed ABDOMEN: Bowel sounds normal; soft; no masses or tenderness, no hepatosplenomegaly GENITOURINARY/FEMALE: External genitalia normal; vagina normal; urethra without discharge; cervix normal without lesion; pap smear obtained. VASCULAR: No jugular venous distention or hepatojugular reflux; normal carotid pulses, without bruits; abdominal aorta without enlargement, aneurysm or bruit; peripheral pulses normal RECTAL/FEMALE: not performed LYMPHATIC: Normal nodes throughout without enlargement or tenderness; no hepatosplenomegaly NEUROLOGIC: Alert and oriented times 3; mental status normal; cranial nerves II- XII normal; muscle strength 5/5, and symmetric; reflexes full and symmetric MUSCULOSKELETAL: Spine well aligned with normal range of motion and without tenderness; neck normal,with good range of motion; muscles normal; joints without abnormalities EXTREMITIES: No cyanosis, clubbing or edema; peripheral pulses normal; no varicose veins; joints normal PSYCHIATRIC: POSITIVES: anxious Patient notes the following DSM-IV Depression symptoms on a scale of 0-3: PHQ-9, C-SSRS 02/06/2018 Total Score (MyH): 9 Anhedonia (MyH) Several days Depressed Mood (MyH) Several days Sleep Change (MyH) Nearly every day Fatigue (MyH) Several days Appetite Change (MyH) Not at all Poor Self-esteem (MyH) Several days Poor Concentration (MyH) More than half the days Psychomotor Change (MyH) Not at all Suicidal Ideation (MyH) Not at all Difficulty Caused by Symptoms (MyH) Somewhat difficult Anhedonia - Depressed Mood - (Typical scores: 0-4=no or minimal; 5-9=minor; 10-14 =mild major depression; 15- 19=moderate major depression; 20-27= severe major depression.) ANSON-7 02/06/2018 ANSON Nervous (MyH) More than half the days ANSON Worry (MyH) More than half the days ANSON Worry Too Much (MyH) More than half the days ANSON Relax (MyH) Not at all ANSON Restless (MyH) More than half the days ANSON Annoyed (MyH) Several days ANSON Afraid (MyH) More than half the days ANSON Summary (MyH) Somewhat hard ANSON Scoring (MyH) 11 Scorin or higher- significant anxiety; 15 or higher- severe anxiety ASSESSMENT/PLAN: 1. Routine general medical examination at a health care facility History reviewed and updated. 2. Screening for cervical cancer Done today. If negative can repeat in 3 years. - PAP, LIQUID BASED; Future - OBTAIN SCRN PAP SMEAR - PAP, LIQUID BASED 3. Oral contraceptive pill surveillance Refilled for one year. Risks, benefits, side effects of medication(s) discussed. 4. Cystic acne - tretinoin (RETIN-A) 0.025 % cream; Apply topically at bedtime. Apply a thin layer to entire face nightly, to [id number], or as tolerated. Increase gradually with a goal of every night, or at least four nights a week. Dispense: 45 g; Refill: 11 Risks, benefits, side effects of medication(s) discussed. 5. Sleep disturbance Start Trazodone 25, 50, or 100 mg as needed. Can refill based on effective dose. 6. Anxiety Discussed treatment options. Patient does not wish for medication at this time as she is concerned that they are category C. Would like to wait at this time and see if getting better sleep with the trazodone is enough to help her daily anxiety. Follow-up in one year for annual exam or sooner if needed. Patient is in agreement with the assessment and plan and will contact the clinic with any future concerns. documented in this encounter Plan of Treatment Not on filedocumented as of this encounter Procedures Procedure Name Priority Date/Time Associated Diagnosis Comme nts PAP, LIQUID BASED Routine 02/06/2018 12:56 PM Screening for Re sults for this CDT cervical cancer procedure bryson jesus in the results section. OBTAIN SCRN PAP Routine 02/06/2018 12:38 PM Screening for SMEAR CDT cervical cancer documented in this encounter Results PAP, LIQUID BASED (02/06/2018 12:56 PM CDT) Component Value Ref Test Analysis Performed At [facility] gist Range Method Time Signature Case Report Gynecologic Cytology Report ? Case: [id number] ? 02/08/2018 PARAM Authorizing Provider: ??Javier as, Gerda R, BEAM DYER RECESSED VAT, DIRECT CHILL CASTER ??Collected: ? 02/06/2018 1256 ? 12:18 PM HOSPITA L Ordering Location: ? [address] ? Received: ?02/06/2018 1305 ? CDT LABO RATORY [facility]INE ? First Screen: ? Margo, Abigail ? Specimen: ?LIQUID-BASED PAP, Cervix ? Gynecologic Negative for 02/08/2018 [facility] Elec tronically Cytology Intraepithelial 12:18 PM HOSPITAL sign ed by Interpretation Lesion or CDT LABORATORY Thor son, Abigail , [facility] Malignancy. on 02/08 at Collection 12:18 PM Specimen Satisfactory for 02/08/2018 [facility] Adequacy evaluation, 12:18 PM HOSPITAL endocervical/trans CDT LABORATORY formation zone component is present. Pap Disclaimer Note: The Pap test is a scre ening procedure and is not, by itself, diagnostic. False negatives and positives do occur. Correlation with clinical findings, history and a program of regular examinations i 02/08/2018 [facility] ncluding Pap tests is justin stevenson to help detect cancers and precursor lesions of the female genital tract. 12:18 PM HOSPITAL CDT LABORATORY Specimen Anatomical Collection Method Collection Time Receive d Time (Source) Location / / Volume Laterality [place] VAGINAL CERVIX / Non-blood 02/06/2018 12:56 018 1:05 Unknown collection / PM CDT PM CDT Unknown Gerda Gan APRN, DNP EC PATHOLOGY ORDERABLES Performing Organization Address City/State/ZIP Code Phon e Number [facility] [address] [place] [address] documented in this encounter Visit Diagnoses Diagnosis Routine general medical examination at a health care facility - Primary Screening for cervical cancer Screening for malignant neoplasm of the cervix Oral contraceptive pill surveillance Surveillance of previously prescribed co ntraceptive pill Cystic acne Other acne Sleep disturbance Sleep disturbance, unspecified Anxiety Anxiety state, unspecified documented in this encounter Discontinued Medications Medication Sig Discontinue Reason Start Date End Date minocycline (DYNACIN) Take one tablet by Course of treatment 201602/06/2018 100 MG tablet mouth twice daily completed for two months, then once daily for two weeks, then once [id number] for two weeks, then stop. norethindrone-ethinyl Take 1 Tab by mouth 02/06/2018 estradiol-iron (JUNEL one time a day. FE 1.5) 1.5-30 MG-MCG oral tabletIndications: Contraceptive Therapy tretinoin (RETIN-A) Apply topically at 03/07/2017 0.025 % cream bedtime. Apply a thin layer to entire face nightly, to [id number], or as tolerated. Increase gradually with a goal of every night, or at least four nights a week. documented as of this encounter Historical Medications This list may reflect changes made after this encounter. Medication Sig Dispensed Refills Start Date End Date Ibuprofen-Diphenhydramine Cit Take by mouth. 0 05/31/2018 (ADVIL PM OR) added in this encounter Orders Procedures Count Last Ordered Date First Ordered Date OBTAIN SCRN PAP SMEAR 1 02/06/2018 documented in this encounter Care Teams Crozer Relationship Specialty Start Date End Date Gerda Gan APRN, DNP PCP - General Family Medicine 02/06/18 03/19/[address] [place] [address] documented as of this encounter
--- OUTSIDE RECORDS SUMMARY | 2022-09-06 22:24 | XMS_ITS | Encounter Summary ---
:1990 Author Organization [employer] Address [address] [address] Phone Care Team Providers Name Role Phone Rosario Luevano APRN, ASSET CARD CLERK Primary Care Provider [phone] Reason for Visit Reason Onset Date Comments Refill Request 02/18/2021 Encounter Details Date Type Department Care Team Description 02/18/2021 MyH Refill Smartbill - Recurrence Backoffice-52ND Message, Colten lloyd; [facility] FAM[facility] Difficu lty sleeping; MEDICINE Oral contraceptive pill [facility] [address] [place] [address] Social History Tobacco Use Types Packs/Day Years [...] AM CDT documented as of this encounter Plan of Treatment Not on filedocumented as of this encounter Visit Diagnoses Diagnosis Anxiety Anxiety state, unspecified Difficulty sleeping Sleep disturbance, unspecified Oral contraceptive pill surveillance Surveillance of previously prescribed co ntraceptive pill documented in this encounter Care Teams Sweatband Perforator Relationship Specialty Start Date End Date Rosario Luevano APRN, ASSET CARD CLERK PCP - General Family Medicine 03/20/[address] [place] [phone] documented as of this encounter
--- OUTSIDE RECORDS SUMMARY | 2022-09-06 22:24 | XMS_ITS | Encounter Summary ---
:1990 Author Organization [employer] Address [address] [place] [phone] Phone Care Team Providers Name Role Phone Rosario Luevano APRN, CNP Primary Care Provider [phone] Encounter Details Date Type Department Care Team Description 03/20/2020 Travel Social History Tobacco Use Types Packs/Day Years [...] Date Recorded Female 03/20/2020 9:43 AM CDT COVID-19 Exposure Response Date Recorded In the last month, have you been in contact with No / Unsure 03/20/2020 9:46 AM CDT someone who was confirmed or suspected to have Coronavirus / COVID-19? documented as of this encounter Plan of Treatment Not on filedocumented as of this encounter Visit Diagnoses Not on filedocumented in this encounter Care Teams Oracle Applications Developer Relationship Specialty Start Date End Date Rosario Luevano APRN, PRESS READER PCP - General Family Medicine 03/20/[address] [place] [address] documented as of this encounter
--- OUTSIDE RECORDS SUMMARY | 2022-09-06 22:24 | XMS_ITS | Encounter Summary ---
:1990 Author Organization [employer] Address [address] [address] Phone Care Team Providers Name Role Phone Rosario Luevano APRN, WASH OIL PUMP OPERATOR HELPER Primary Care Provider [phone] Reason for Visit Reason Onset Date Comments Refill Request 02/22/2021 Encounter Details Date Type Department Care Team Description 02/22/2021 Refill [facility] [place] [address] NgocdarianJosh, RN Refill Request [facility] [address] [place] [address] Social History Tobacco Use Types Packs/Day Years [...] Date End Date traZODone (Desyrel) 50 MG Take 1 Tablet by 30 Tablet 0 01/29 tabletIndications: Anxiety, mouth at bedtime. Difficulty sleeping norethindrone (Micronor, Take 1 Tablet by 28 Tablet 0 02/22 Faith, Jahaira) 0.35 MG mouth one time a tabletIndications: Oral day. contraceptive pill surveillance documented in this encounter Plan of Treatment Not on filedocumented as of this encounter Visit Diagnoses Diagnosis Oral contraceptive pill surveillance Surveillance of previously prescribed co ntraceptive pill Anxiety Anxiety state, unspecified Difficulty sleeping Sleep disturbance, unspecified documented in this encounter Discontinued Medications Medication Sig Discontinue Reason Start Date End Date traZODone (Desyrel) 50 MG Take 1 Tab by Reorder 03/20/2020 0 02/22/2021 tabletIndications: mouth at bedtime. Anxiety, Difficulty sleeping norethindrone (Micronor, Take 1 Tab by Reorder 03/20/2020 Faith, Jahaira) 0.35 MG mouth one time a tabletIndications: Oral day. contraceptive pill surveillance documented as of this encounter Care Teams Caser In Relationship Specialty Start Date End Date Rosario Luevano, SHIPPING SUPERVISOR, WASH OIL PUMP OPERATOR HELPER PCP - General Family Medicine 03/20/20 [facility] [address] [place] [address] documented as of this encounter
--- OUTSIDE RECORDS SUMMARY | 2022-09-06 22:24 | XMS_ITS | Encounter Summary ---
:1990 Author Organization [employer] Address [address] [address] Phone Care Team Providers Name Role Phone Gerda Gan APRN, DNP Primary Care Provider [phone] Reason for Visit Reason Onset Date Comments Refill Request 03/12/2019 Encounter Details Date Type Department Care Team Description 03/12/2019 Telephone [facility] Nona Sandoval L PN Refill Request [address] [address] Social History Tobacco Use Types Packs/Day Years [...] End Date norethindrone-ethinyl Take 1 Tab by 84 Tab 0 03/12/2019 03/15/2019 estradiol (11/18) mouth one time a 1-20 MG-MCG oral day. tabletIndications: Oral contraceptive pill surveillance documented in this encounter Miscellaneous Notes Telephone Encounter - Nona Sandoval LPN - 03/13/2019 2:18 PM CDT Noted that pt was able to schedule an appointment with Gerda's colleague Rosario Luevano APRN, DAY CARE SUPERVISOR. Telephone Encounter - Nona Sandoval LPN - 03/12/2019 2:44 PM CDT Left message for pt to call back. Author attempted to contact patient to discuss her refill request. Please communicate or obtain the following information to/from the patient:: Pt needs to be seen as her last appointment was over a year ago on 02/06/18. Gerda Gan APRN, DNP is currently out on medical leave, but her colleague Rosario Nascimento PA-C did send a 3 month supply over to the pharmacy. Pt will need an appointment prior to further refills. Please schedule an appointment for patient, using visit type: Appointment only: OVS, any Family Medicine provider for Control Recheck Orders have been placed None needed - No further communication or follow-up is required upon resolution of the above request ----- Message from Lorrie Jackson sent at 03/12/2019 1:11 PM CDT ----- Contact: Patient Provider: Gerda Gan Date: 03/12/2019 Time: 1:12 PM May we leave a message: yes Patient's Date of : 1990 Person Calling: Shivani Phone Number: Cell phone Telephone Information: Reason for call: Patient is calling because her pharmacy informed her that her control prescription is . Please call to discuss plan of action. Thank you. Pharmacy: [facility] [address] [place] [address] Allergies: -- Ceclor [Cefaclor] -- Hives documented in this encounter Plan of Treatment Not on filedocumented as of this encounter Visit Diagnoses Diagnosis Oral contraceptive pill surveillance Surveillance of previously prescribed co ntraceptive pill documented in this encounter Discontinued Medications Medication Sig Discontinue Reason Start Date End Date norethindrone-ethinyl TAKE 1 TAB BY Reorder 12/26/201803/12 estradiol (11/18) MOUTH ONE TIME A 1-20 MG-MCG oral DAY tabletIndications: Oral contraceptive pill surveillance documented as of this encounter Care Teams Conversion Man Relationship Specialty Start Date End Date Gerda Gan APRN, DNP PCP - General Family Medicine 02/06/18 03/19/[address] [place] [address] documented as of this encounter
--- OUTSIDE RECORDS SUMMARY | 2022-09-06 22:24 | XMS_ITS | Encounter Summary ---
:1990 Author Organization [employer] Address [address] [address] Phone Care Team Providers Name Role Phone Gerda Gan APRN, DNP Primary Care Provider [phone] Reason for Visit Reason Comments Finger Laceration Auth/Cert Specialty Diagnoses / Procedures Referred By Contact Refer red To Contact 32 Emergency Room [address] [place] [address] Referral ID Status Reason Start Date Expiration Date Visits Requ ested Visits Authorized [id number] 1 1 Encounter Details Date Type Department Care Team Description 01/19/2019 Emergency 32 [facility] Checo Shen DO Amputation of finger EMERGENCY DEPARTMENT [address] tip, initial encounter [address] [facility] (Primary Dx) [place] [address] [place] [address] [phone] Social History Tobacco Use Types Packs/Day Years [...] pay for the very basics like Not shabana ballesteros hard 03/20/2020 food, housing, medical care, and [...] Sign Reading Time Taken Comments Blood Pressure 130/82 01/19/2019 12:07 AM CDT Pulse 71 01/19/2019 12:07 AM CDT Temperature 36.7 ??C (98.1 ??F) 01/19/2019 12:07 AM CDT Respiratory Rate 18 01/19/2019 12:07 AM CDT Oxygen Saturation 97% 01/19/2019 12:07 AM CDT Inhaled Oxygen Concentration - - Weight 44.5 kg (98 lb) 01/19/2019 12:07 AM CDT Height 162.6 cm (5' 4) 01/19/2019 12:07 AM CDT Body Mass Index 16.82 01/19/2019 12:07 AM CDT documented in this encounter Discharge Instructions AttachmentsThe following attachments cannot be sent through Care Everywhere. Laceration, Extremity: Stitches, Staple, or Tape (S[place] Arabian)documented in this encounter Discharge Disposition Disposition Code Departure Means Destination Home and/or Self Correction documented in this encounter ED Notes Checo Shen DO - 01/19/2019 12:27 AM CDTAssociated Order(s): Laceration Repair Post-Procedure Diagnose(s): Amputation of finger tip, initial encounter Images from the original note were not included. Patient: Shivani Meyer Means of Arrival: Car Chief Complaint: Finger Laceration History of Present Illness: Patient accidentally cut tip of left middle finger with a knife tonight. Last tetanus vaccine less than 10 years ago. Mild to moderate pain. Bleeding controlled. No other injuries or concerns. PMH of CVD, BCA. PSH of occasional alcohol use. Review of Systems: Review of Systems Constitutional: Negative for activity change, appetite change, chills, diaphoresis, fatigue and fever. Musculoskeletal: Positive for myalgias. Skin: Positive for wound. Negative for color change, pallor and rash. Neurological: Negative for weakness and numbness. Hematological: Does not bruise/bleed easily. Psychiatric/Behavioral: The patient is nervous/anxious. Allergies Allergen Reactions ??? Ceclor [Cefaclor] Hives Prior to Admission Medication List Med List Status: ED Triage Only Set By: Willy Peoples RN at 01/19/2019 12:11 AM norethindrone-ethinyl estradiol (11/18) 1-20 MG-MCG oral tablet TAKE 1 TAB BY MOUTH ONE TIME A DAY traZODone (DESYREL) 50 MG tablet TAKE 1 TAB BY MOUTH AT BEDTIME. Past Medical History: Past Medical History: Diagnosis Date ??? Anxiety Past Surgical History: Past Surgical History: Procedure Laterality Date ??? WISDOM TOOTH EXTRACTION Family History: Family History Problem Relation Age of Onset ??? Musculo-skeletal Disease Mother Fusions - scoliosis, MVA ??? No Known Problems Father ??? Breast Cancer Maternal Grandmother and 3/4 sisters ??? Cardiovascular Disease Maternal Grandfather ??? Ophthalmic Disease Paternal Grandmother glaucoma Social History: Social History Tobacco Use ??? Smoking status: Never Smoker ??? Smokeless tobacco: Never Used Substance Use Topics ??? Alcohol use: Yes Comment: Socially, minimally ??? Drug use: No Social History Substance and Sexual Activity Drug Use No Exam: Initial Vitals Most Recent Vitals Temp: 98.1 ??F (36.7 ??C) (01/19/196) Temp: 98.1 ??F (36.7 ??C) (01/19/196) Pulse: 71 (01/19/196) Pulse: 71 (01/19/196) Resp: 18 (01/19/196) Resp: 18 (01/19/196) BP: 130/82 (01/19/196) BP: 130/82 (01/19/196) SpO2: 97 % (01/19/196) SpO2: 97 % (01/19/196) Physical Exam: Physical Exam Constitutional: She is oriented to person, place, and time. No distress. HENT: Head: Normocephalic and atraumatic. Eyes: Pupils are equal, round, and reactive to light. Conjunctivae and EOM are normal. Right eye exhibits no discharge. Left eye exhibits no discharge. No scleral icterus. Neck: Normal range of motion. Abdominal: Normal aorta. Musculoskeletal: Normal range of motion. She exhibits tenderness. She exhibits no edema or deformity. Left middle finger with distal near amputation of just under 1cm flap that involves distal nail as well. Neurological: She is alert and oriented to person, place, and time. She has normal strength. No cranial nerve deficit or sensory deficit. Coordination normal. Skin: Skin is warm and dry. No rash noted. She is not diaphoretic. No erythema. No pallor. Left middle finger with distal near amputation of just under 1cm flap that involves distal nail as well. Psychiatric: She has a normal mood and affect. Her behavior is normal. Judgment and thought content normal. Nursing note and vitals reviewed. Lab Results: No results found for this visit on 01/19/19. Imaging Results: Imaging Results None Emergency Department Course: Patient with partial nail removal and flap sutured back into place. Discharged with instructions for home care, follow up, and reasons to return emergently. Stable. Procedures: Laceration Repair Date/Time: 01/19/2019 12:52 AM Performed by: Checo Shen DO Authorized by: Checo Shen DO Consent: Consent obtained: Verbal Consent given by: Patient Risks discussed: Pain, infection and poor wound healing Alternatives discussed: Observation Anesthesia (see MAR for exact dosages): Anesthesia method: Local infiltration Local anesthetic: Lidocaine 1% w/o epi Laceration details: Location: Finger (distal fingertip amputation involving nail.) Finger location: L long finger Treatment: Area cleansed with: Soap and water and Shur-Clens Amount of cleaning: Standard Skin repair: Repair method: Sutures Suture size: 5-0 Suture material: Nylon Suture technique: Simple interrupted Number of sutures: 4 Approximation: Approximation: Close Vermilion border: well-aligned Post-procedure details: Dressing: Antibiotic ointment and adhesive bandage Patient tolerance of procedure: Tolerated well, no immediate complications Assessment: Amputation of finger tip, initial encounter (primary encounter diagnosis) Plan: Discharge Prescriptions None MDM Checo Shen DO 01/19/19 0055 Willy Peoples RN - 01/19/2019 12:06 AM CDT Left middle finger laceration with knife. documented in this encounter Plan of Treatment Not on filedocumented as of this encounter Procedures Procedure Name Priority Date/Time Associated Comments Diagnosis ED LACERATION REPAIR 01/19/2019 12:27 AM Amputation of Results for this CDT finger tip, initial procedur e are in encounter the results section. documented in this encounter Results Laceration Repair (01/19/2019 12:27 AM CDT) Narrative Checo Shen DO - 01/19/2019 12:27 AM CDT Checo Shen DO ? 01/19/2019 12:55 AM Laceration Repair Date/Time: 01/19/2019 12:52 AM Performed by: Checo Shen DO Authorized by: Checo Shen DO Consent: ??Consent obtained: ??Verbal ??Consent given by: ??Patient ??Risks discussed: ??Pain, infection an d poor wound healing ??Alternatives discussed: ??Observation Anesthesia (see MAR for exact dosages): ??Anesthesia method: ??Local infiltrati on ??Local anesthetic: ??Lidocaine 1% w/o epi Laceration details: ??Location: ??Finger (distal fingertip amputation involving nail.) ??Finger location: ??L long finger Treatment: ??Area cleansed with: ??Soap and water and Shur-Clens ??Amount of cleaning: ??Standard Skin repair: ??Repair method: ??Sutures ??Suture size: ??5-0 ??Suture material: ??Nylon ??Suture technique: ??Simple interrupte d ??Number of sutures: ??4 Approximation: ??Approximation: ??Close ??Vermilion border: well-aligned ?? Post-procedure details: ??Dressing: ??Antibiotic ointment and a dhesive bandage ??Patient tolerance of procedure: ??Fabiana erated well, no immediate complications Checo LUNA PROCEDURE ORDERABLES documented in this encounter Visit Diagnoses Diagnosis Amputation of finger tip, initial encoun ter - Primary documented in this encounter Administered Medications Inactive Administered Medications Medication Order MAR Action Action Date Dose Rate Site bacitracin zinc 500 UNIT/GM ointment Given 01/19/2019 1:12 AM CDT Topical, ONCE, 1 dose, On 01/19/19 at 0030 ibuprofen (MOTRIN) tablet 600 mg Given 01/19/2019 1:11 AM CDT 600 mg 600 mg, Oral, ONCE, 1 dose, On 01/19/19 at 0030 documented in this encounter Active and Recently Administered Medications Times are shown in CDT. Scheduled Medication Order 01/17/2019 01/18/2019 01/19/2019 bacitracin zinc 500 UNIT/GM ointment (COMPLETED) 0112 (Given - Provider: Miguelina Mcclellan RN) Topical, ONCE, 1 dose, On 01/19/19 at 0030 ibuprofen (MOTRIN) tablet 600 mg (COMPLETED) 011 (Given - Provider: Miguelina Mcclellan RN) 600 mg, Oral, ONCE, 1 dose, On 01/19/19 at 0030 documented in this encounter Care Teams Belt Line Feeder Relationship Specialty Start Date End Date Gerda Gan APRN, DNP PCP - General Family Medicine 02/06/18 03/19/[address] [place] [address] documented as of this encounter
--- OUTSIDE RECORDS SUMMARY | 2022-09-06 22:24 | XMS_ITS | Encounter Summary ---
:1990 Author Organization [employer] Address [address] [address] Phone Care Team Providers Name Role Phone Margret Gan APRN, [facility] Primary Care Provider [phone] Reason for Visit Reason Comments Refill Request Encounter Details Date Type Department Care Team Description 04/05/2018 Refill [facility] Margret Gan APRN, [facility]ill [facility] [address] [place] [address] [place] [address] [place] [address] [phone] (Wo rk) Social History Tobacco Use Types [...] Dispensed Refills Start Date End Date traZODone (DESYREL) 50 MG TAKE 1 TAB BY MOUTH 90 Tab 3 0 04/05/2018 03/15/2019 tablet AT BEDTIME. documented in this encounter Miscellaneous Notes Telephone Encounter - Utility, Refill Wizard - 04/05/2018 11:38 AM CDT traZODone (DESYREL) 50 MG tablet [Pharmacy Med Name: TRAZODONE 50MG TAB PKI###] Depression -> Refill x 12 months, qty: 90, refills: 3 (until due for an office visit) Last qualifying visit: 02/06/2018 (with MARGRET GAN) Next scheduled visit: 02/07/2019 (in Family Practice) Last ordered by MARGRET GAN: 02/06/2018 (58 days ago) QTY: 30, Refills: 0, Sig: take 1 tab by mouth at bedtime. (unchanged) Last fill date from pharmacy: 02/06/2018 PHQ-9: Not found Powered by [employer], Reference: [id number], 04/05/2018 11:38:26 AM CDT, Pool: SANGEETHA ([id number]) documented in this encounter Plan of Treatment Not on filedocumented as of this encounter Visit Diagnoses Not on filedocumented in this encounter Discontinued Medications Medication Sig Discontinue Reason Start Date End Date traZODone (DESYREL) 50 MG Take 1 Tab by mouth 02/07/20 18 04/05/2018 tablet at bedtime. documented as of this encounter Care Teams Development Executive Relationship Specialty Start Date End Date Margret Gan APRN, DNP PCP - General Family Medicine 02/06/18 03/19/[address] [place] [address] documented as of this encounter
--- OUTSIDE RECORDS SUMMARY | 2022-09-06 22:24 | XMS_ITS | Encounter Summary ---
:1990 Author Organization [employer] Address [address] [address] Phone Care Team Providers Name Role Phone Minal Castro German HILARIO, WELDER PLASMA ARC Primary Care Provider [phone] Reason for Visit Reason Onset Date Comments Appointment 02/06/2017 Encounter Details Date Type Department Care Team Description 02/06/2017 Telephone [facility] Gerda Gan A PRN, Appointment MEDICINE [address] [address] [place] [address] [phone] (Wo rk) Social History Tobacco Use Types Packs/Day Years Used Date Smoking Tobacco: Never Alcohol Habits Answer Date Recorded [...] this encounter Miscellaneous Notes Telephone Encounter - Delilah Ernnadez - 02/06/2017 8:13 AM CDT Referral patients - Referring provider: Minal Castro Referred to doctor and department: Dermatology Diagnosis: Lesion Timeframe: First Available documented in this encounter Plan of Treatment Not on filedocumented as of this encounter Visit Diagnoses Not on filedocumented in this encounter Care Teams Commercial Management Accountant Relationship Specialty Start Date End Date Minal Castro, HOG COOLER, WELDER PLASMA ARC PCP - General Family Medicine 12/09/16 02/05/18 [address] [place] [address] documented as of this encounter
--- OUTSIDE RECORDS SUMMARY | 2022-09-06 22:24 | XMS_ITS | Encounter Summary ---
:1990 Author Organization [employer] Address [address] [address] Phone Care Team Providers Name Role Phone Margret Gan APRN, DNP Primary Care Provider [phone] Reason for Visit Reason Comments Refill Request Refused/norethindrone-ethiny l estradiol Encounter Details Date Type Department Care Team Description 03/11/2019 Refill [facility] Margret Gan, Refi ll Request [facility] HILARIO (Refused/norethindrone-e MEDICINE [address] [facility] thinyl estradiol) [address] [place] [address] [place] [address] [phone] Social History Tobacco Use Types Packs/Day Years [...] this encounter Miscellaneous Notes Telephone Encounter - Gladys Polanco RN - 03/13/2019 11:32 AM CDT Refusal sent electronically to the listed pharmacy. Notes to Pharmacy: Needs appointment prior to further refills. Telephone Encounter - Nuno Refill Wizard - 03/11/2019 6:04 PM CDT norethindrone-ethinyl estradiol (11/18) 1-20 MG-MCG oral tablet [Pharmacy Med Name: [id number] 1-0.02MYL] Hormone Replacement & Contraceptives -> Refill x 3 months (courtesy refill. overdue for an office visit) Last qualifying visit: 02/06/2018 (with MARGRET GAN) Next scheduled visit: None Last ordered by MARGRET GAN: 12/26/2018 (75 days ago) QTY: 84, Refills: 0, Sig: take 1 tab by mouth one time a day (unchanged) Last fill date from pharmacy: 12/26/2018 PATIENT IS DUE FOR: - OFFICE VISIT for multiple medications including traZODone (DESYREL) 50 MG tablet (Sent to RX Scheduling) Powered by [employer], Reference: [id number], 03/11/2019 6:04:45 PM CDT, Pool: SANGEETHA ([id number]) documented in this encounter Plan of Treatment Not on filedocumented as of this encounter Visit Diagnoses Diagnosis Oral contraceptive pill surveillance Surveillance of previously prescribed co ntraceptive pill documented in this encounter Care Teams Electron Gun Assembler Relationship Specialty Start Date End Date Margret Gan APRN, DNP PCP - General Family Medicine 02/06/18 03/19/[address] [place] [address] documented as of this encounter
--- OUTSIDE RECORDS SUMMARY | 2022-09-06 22:24 | XMS_ITS | Encounter Summary ---
:1990 Author Organization [employer] Address [address] [place] [address] Phone Care Team Providers Name Role Phone Gerda Gan APRN, TWIN Primary Care Provider [phone] Encounter Details Date Type Department Care Team Description 03/15/2019 Travel Social History Tobacco Use Types Packs/Day [...] on filedocumented in this encounter Care Teams Biometric Fingerprinting Technician Relationship Specialty Start Date End Date Gerda Gan, SULAIMAN, DNP PCP - General Family Medicine 02/06/18 03/19/[address] [place] [address] documented as of this encounter
--- OUTSIDE RECORDS SUMMARY | 2022-09-06 22:24 | XMS_ITS | Encounter Summary ---
:1990 Author Organization [email or web address] Address [address] [address] Phone Care Team Providers Name Role Phone Rosario Luevano APRN, CNP Primary Care Provider [phone] Reason for Visit Reason Onset Date Comments Appointment 07/08/2020 Encounter Details Date Type Department Care Team Description 07/08/2020 Telephone [facility] [place] Appointment CLINIC [address] [facility] [place] [address] Social History Tobacco Use Types [...] this encounter Miscellaneous Notes Telephone Encounter - Carmella Nieto - 07/08/2020 2:51 PM CDT Called patient to reschedule 08/21/[address] Cope. Left message to call [phone] for assistance. documented in this encounter Plan of Treatment Not on filedocumented as of this encounter Visit Diagnoses Not on filedocumented in this encounter Care Teams Dust Mop Maker Relationship Specialty Start Date End Date Rosario Luevano APRN, PROFILE GRINDER PCP - General Family Medicine 03/20/[address] [place] [address] documented as of this encounter
--- OUTSIDE RECORDS SUMMARY | 2022-09-06 22:24 | XMS_ITS | Encounter Summary ---
:1990 Author Organization [employer] Address [address] [place] [address] Phone Care Team Providers Name Role Phone Gerda Gan APRN, TWIN Primary Care Provider [phone] Encounter Details Date Type Department Care Team Description 08/19/2019 Travel Social History Tobacco Use Types Packs/Day [...] on filedocumented in this encounter Care Teams Electronic Systems Security Assessment Relationship Specialty Start Date End Date Gerda Gan, SULAIMAN, DNP PCP - General Family Medicine 02/06/18 03/19/[address] [place] [address] documented as of this encounter
--- OUTSIDE RECORDS SUMMARY | 2022-09-06 22:24 | XMS_ITS | Encounter Summary ---
:1990 Author Organization [employer] Address [address] [address] Phone Care Team Providers Name Role Phone Gerda Gan APRN, TWIN Primary Care Provider Reason for Visit Reason Onset Date Comments Appointment 09/10/2018 Encounter Details Date Type Department Care Team Description 09/10/2018 Telephone [facility] Dennis Montague Appointment FAMILY MEDICINE [address] [place] [address] Social History Tobacco Use Types Packs/Day Years [...] this encounter Miscellaneous Notes Telephone Encounter - Dennis Montague - 09/10/2018 12:21 PM CST Author attempted to contact patient regarding reschedule/wait list yes Appointment to be rescheduled 02/07/19 If Yes, Specific slot reserved for patient: N/A Date/Time reserved na Able to double book slot N/A per na Lab First: N/A na Please communicate or obtain the following information to/from the patient:: please reschedule pt's 02/07/19 apt with Gerda Gan (clinician request). [facility] documented in this encounter Plan of Treatment Not on filedocumented as of this encounter Visit Diagnoses Not on filedocumented in this encounter Care Teams Polymerization Oven Operator Relationship Specialty Start Date End Date Gerda Gan, SULAIMAN, DNP PCP - General Family Medicine 02/06/18 03/19/[address] [place] [address] documented as of this encounter
--- OUTSIDE RECORDS SUMMARY | 2022-09-06 22:24 | XMS_ITS | Encounter Summary ---
:1990 Author Organization [employer] Address [address] [place] [address] Phone Care Team Providers Name Role Phone Gerda Gan APRN, TWIN Primary Care Provider [phone] Reason for Visit Reason Comments Eye Exam 1 yr post lasik, no problems or complaints of any kind, very happy with vision. Encounter Details Date Type Department Care Team Description 07/09/2018 Office Visit Yonas Duran, OD Hx of LASIK (Primary Dx); [facility] [address] [facility] ia, bilateral; [facility] [address] Regular astigmatism of both eyes [address] [place] [address] [place] [address] [phone] Social History Tobacco Use Types Packs/Day Years [...] encounter Progress Notes Yonas Cope, OD - 07/09/2018 2:20 PM CDT Shivani Meyer is a 27 year old female, here for: Chief Complaint Patient presents with ??? Eye Exam 1 yr post lasik, no problems or complaints of any kind, very happy with vision. HPI: New pt presents for CMPEE. She had LASIK 1 year ago and is extremely happy with results. Review of Systems (N/A = not assessed) [...] Past Medical History: Diagnosis Date ??? Anxiety Allergies Allergen Reactions ??? Ceclor [Cefaclor] Hives [...] She is . 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 From [employer] Reviewed originally. Family History Problem Relation Age of Onset ??? Musculo-skeletal Disease Mother Fusions - scoliosis, MVA ??? No Known Problems Father ??? Breast Cancer Maternal Grandmother and 3/4 sisters ??? Cardiovascular Disease Maternal Grandfather ??? Ophthalmic Disease Paternal Grandmother glaucoma No results found for: HGA1C Assessment: (Z98.890) Hx of LASIK (primary encounter diagnosis) (H52.03) Hyperopia, bilateral (H52.223) Regular astigmatism of both eyes Plan: No Rx, recheck yearly unless sx sooner. Return in about 1 year (around 07/09/2019), or if symptoms worsen or fail to improve, for annual examand PRN. Electronically signed by Yonas Cope, ALMITA 07/09/2018 3:[address] [facility] [address] [place], [place] [address] [place] [address] documented in this encounter Plan of Treatment Not on filedocumented as of this encounter Procedures Procedure Name Priority Date/Time Associated Diagnosis Comme nts REFRACTION Routine 07/09/2018 3:55 PM CDT Hyperopia , bilateral Regular astigmatism of both eyes documented in this encounter Visit Diagnoses Diagnosis Hx of LASIK - Primary Other states following surgery of eye an d adnexa Hyperopia, bilateral Regular astigmatism of both eyes Regular astigmatism documented in this encounter Orders Procedures Count Last Ordered Date First Ordered Date REFRACTION 1 07/09/2018 documented in this encounter Eye Exam Visual Acuity (Snellen - Linear) Right eye Left eye Dist sc 20/15 20/20 +3 Tonometry (Tonopen, 3:53 PM) Right eye Left eye Pressure 12 13 Pupils Pupils APD Right eye PERRL None Left eye PERRL None Visual Diggs Right eye Left eye Full Extraocular Movement Right eye Left eye Full Full Neuro/Psych Oriented x3: Yes Mood/Affect: Normal Dilation Both eyes: 1.0% Mydriacyl, 2.5% Phenylep hrine @ 2:40 PM Keratometry (Automated) K1 [place] K2 [place] Right eye 40.50 008 41.00 098 Left eye 40.75 175 41.75 085 External Exam Right eye Left eye External Normal Normal Slit Lamp Exam Right eye Left eye Lids/Lashes Normal Normal Conjunctiva/Sclera White and quiet White and quiet Cornea Clear Clear Anterior Chamber Deep and quiet Deep and quiet Iris Round and reactive Round and reactive Lens Clear Clear Vitreous Normal Normal Fundus Exam Right eye Left eye Disc Normal Normal Macula Normal Normal Vessels Normal Normal Periphery Normal Normal Manifest Refraction #1 (Auto) Sphere Cylinder [place] Dist [place] Right eye +0.25 -0.25 047 Left eye +0.25 -0.25 151 Manifest Refraction #2 Sphere Cylinder [place] Dist VA Right eye +0.25 -0.25 150 20/15 Left eye +0.25 -0.25 150 20/15 Care Teams Yard Labor Supervisor Relationship Specialty Start Date End Date Gerda Gan, HANDY MAN, DNP PCP - General Family Medicine 02/06/18 03/19/[address] [place] [address] documented as of this encounter
--- OUTSIDE RECORDS SUMMARY | 2022-09-06 22:24 | XMS_ITS | Encounter Summary ---
:1990 Author Organization [employer] Address [address] [address] Phone Care Team Providers Name Role Phone Minal Castro SULAIMAN, [employer] Primary Care Provider [phone] Reason for Visit Reason Comments Consult check spot on right leg, nicki nging shape x 2 months ago Acne cystic acne- facial Skin Check full skin check Encounter Details Date Type Department Care Team Description 03/07/2017 Office Visit [facility], Acne vulgar is (Primary Dx); DERMATOLOGY Umer Ball MD Capillary hemangioma; [address] [facility] [address]; Drive [address] Melanocytic [place], [place] [address] [address] [place] [address] [place] [address] Social History Tobacco Use Types Packs/Day Years [...] Sign Reading Time Taken Comments Blood Pressure 120/82 03/07/2017 1:01 PM CDT Pulse 81 03/07/2017 1:01 PM CDT Temperature - - Respiratory Rate - - Oxygen Saturation - - Inhaled Oxygen Concentration - - Weight 45.8 kg (101 lb) 03/07/2017 1:01 PM CDT Height 162.6 cm (5' 4) 03/07/2017 1:01 PM CDT Body Mass Index 17.34 03/07/2017 1:01 PM CDT documented in this encounter Patient Instructions Patient InstructionsJrJazzy powell - 03/07/2017 1:15 PM CDT Skin Cancer Education I recommend a monthly skin examination. Once a month, look at your skin, such as before or during a shower. I don???t expect you to memorize your skin, but get to know it so you can identify new or changing growths. If you aren't sure if the lesion is changing, use a camera to take a picture with a ruler next to it to track it. In general you're looking for things that are causing symptoms, such as pain, itching, or bleeding. Also, you are looking for lesions that are continuing to grow. Especially if they have many differenttypes of colors within them, such as deep blacks, blues, cheng, or reds. You are also looking for rapid growth, irregular edges or borders, asymmetry (if you draw an imaginary line down the middle, thelesion doesn't look the same on both sides), or indistinct or fuzzy edges. Many benign (non-dangerous) lesions can mimic concerning lesions, if you have any concerns please contact me for evaluation. I recommended daily sunscreen on sun exposed skin for all of my patients. Even light through window glass and clouds, even in wintertime, contains significant amounts of cancer causing ultraviolet rays, though the burning rays of the sun are blocked by window glass and clouds. I recommend an SPF 30 per day to day use, and an SPF 50 or higher for direct sunlight. Remember, all sunscreens will breakdown in direct sunlight and wear off in water, so you will need to re-apply per instructions on the product. Just make sure you're product says ???broad- spectrum?? which means it blocks both UVA and UVB rays. Remember sunlight, specifically the burning UVB rays of the sun, is most intense approximately from 10:00 AM to 4:00 PM, though present to varying degrees as long as the sun is visible. I do recommend that you take age and weight-based appropriate amounts of vitamin D in a supplement or multivitamin. Your primary care physician can help determine if you need different amounts of vitamin D in the general population. Though you can make vitamin D from some types of ultraviolet rays, itis identical to what you can get in a supplement without the exposure to the cancer causing rays of the sun. Acne is a very common condition. It can appear at anytime during someone's life and most commonly begins near the onset of puberty. Though generally not a serious medical condition in terms of threat to life or limb, it has been shown to have a significant negative social, emotional, and psychiatric impact. Additionally, it is possible for even relatively moderate acne to cause scarring, which is permanent. Therefore, acne should be treated, like any other medical condition, such as high blood pressure. Acne treatments are varied and very effective, though most are not particularly fast acting. Many patients will need 2 to 3 months of treatment to determine the effectiveness of a particular regimen. Also, the medications do no good in the bottle! You have to use them! Though sticking to a medication regimen is not easy for anyone, with a little bit of effort, you can make it a new habit. Also, once your acne begins to respond, we will often be able to scale back the number of medications used and/or their frequency of use. In order to adequately control acne, a combination of antibacterial, anti- inflammatory, and retinoidmedications are commonly used. These combinations work synergistically; the combination is more powerful than the sum of the individual medications. In addition to these common treatments, there are a variety of additional oral and topical treatments that can be considered. I often use these in particular situations, such as in the case of concurrent , an allergy, or lack of response. DO NOT use any other anti-acne medication or regimen other than what I have prescribed, including nadu-xpn-nmgnjis products. This will not help your acne and may increase irritation. Also, DO NOT pick,squeeze, tigre, pop, or otherwise manipulate your acne. This actually increases healing time and increases the likelihood of scarring. If patients have already developed scarring by the time they begin treatment, they often wish to know about possible treatments for the scarring as well. There are a variety of treatments for scarring,however, in most cases, they should be reserved for after the acne has been adequately controlled. Below is your medication regimen along with some additional information regarding them. Mornin) Benzoyl peroxide wash 2) Clindamycin lotion 3) Oral antibiotic pill (if prescribed) Afternoon 1) Clindamycin lotion (optional) Night: 1) Tretinoin, adapalene, or tazarotene topical medication 2) Clindamycin lotion 3) Oral antibiotic pill (if prescribed) Benzoyl Peroxide: This is a topical medication that has both anti-bacterial as well as keratolytic (breaks up skin) properties. This wash should be used in the morning as there is some concern that it may be able to destroy tretinoin or tazarotene. Use it anywhere that you have acne. Leave the lather on for 45 to 60 seconds and then rinse off. Be cautious as this may bleach your towels or clothes if left on. This may also cause some irritation; if so do not use it until your face becomes use tothe topical retinoid that I have prescribed (tretinoin, adapalene, or tazarotene). This medication helps prevent bacterial resistance to the clindamycin lotion. If you can tolerate it just 2 to 3 mornin gs a week, it will be effective, but use it every morning if you can tolerate it. Clindamycin Lotion: This is a topical antibiotic. Try to use it at least twice a day, anywhere that you have acne. You may use it three or four times a day if you remember; it will be slightly more effective and will not cause harm. Topical Retinoid: This will either be tretinoin, adapalene, or, rarely, tazarotene. This is a topical vitamin A based hormone. It is the most effective and important medication for your acne and will change the way your skin grows. It will eventually stop the formation of the microcomedo, the lesion that all acne comes from. However, the medication is not fast acting and can take 8-12 weeks to reallytake effect. I also have to find the right strength retinoid for you; I make my best guess based on what you tell me but occasionally have to increase or decrease the strength of the retinoid based on your response. This medication will make you a little red and dry, and will make you peel a bit. Thisis normal. Just treat through it and your face will eventually get used to it. You can overcome mostof this with good moisturizers and gentle cleansers and I have included information on some recommended products. Oral Antibiotic Pill: This is most commonly either doxycycline or a closely related medication called minocycline, though I will occasionally prescribed cephalexin, Bactrim, or azithromycin. These medications are best used in short courses, as they help to decrease the redness and inflammation associated with acne quickly, though they do not actually do anything to help with the underlying cause of the acne. Additionally, oral antibiotics are not always indicated, and in fact don't even help some types of acne, so I may or may not have prescribed one for you. Doxycycline will bind metals, and should be taken no sooner than 2 hours before and after metal containing supplements, such as an iron containing multivitamins, or metal containing antacids, such as Maalox or Tums. It is not dangerous if it binds metals, though you will not absorb the medication and it will pass through your system without benefit. Doxycycline may increase sensitivity to sunlight, increasing the likelihood and severity of sunburns; you should practice appropriate sun avoidance and use sunscreens per product instruction with exposure. Also, like many medications, if the pill washesback up into your distal esophagus, it can cause a painful chemical burn. Take the medication with afull glass of water when you will be upright (not laying down, sitting is fine) for at least 30 minutes to give the pill time to dissolve. Minocycline can cause vertigo (dizziness); this often happens right away and is rarely a delayed side effect. If this happens, please stop the medication and call me. It is reversible and will resolve.This medication can also rarely cause skin dyspigmentation (funny coloration, ranging from blue to brown) and a drug- induced lupus-like syndrome (funny rashes, joint pains, and muscles aches, among other symptoms). These complications rarely occur in appropriately treated acne patients as these side effects are rare to start with and usually occur at much higher cumulative doses than a typical acne patient will experience. These side effects are also partially (dyspigmentation) or completely reversible (drug- induced lupus), though they can last for quite some time. However, a benefit of minocyclineis that it does not make you sensitive to the sun. With any of the oral antibiotics, should you develop diarrhea that lasts more than 3 days, or any bloody diarrhea, I want you to stop the medication and contact me. documented in this encounter Ordered Prescriptions Prescription Sig Dispensed Refills Start Date End Date tretinoin (RETIN-A) Apply topically at 45 g 11 03/07/20 17 02/06/2018 0.025 % cream bedtime. Apply a thin layer to entire face nightly, to zwyme-fbgmh-awuos, or as tolerated. Increase gradually with a goal of every night, or at least four nights a week. minocycline (DYNACIN) Take one tablet by 142 Tab 0 201602/06/2018 100 MG tablet mouth twice daily for two months, then once daily for two weeks, then once dlqky-eyeqy-gxw for two weeks, then stop. documented in this encounter Progress Notes Umer Thacker MD - 03/07/2017 1:15 PM CDT Chief Complaint: Chief Complaint Patient presents with ??? Consult check spot on right leg, changing shape x 2 months ago ??? Acne cystic acne- facial ??? Skin Check full skin check History of Present Illness: Shivani Melgar is a 26 year old female who presents for a full body skin exam. She has a lesion of concern on her right leg today. She also has acne of concern on her face. Problem 1: Lesion Location: Right leg Quality and Severity of Symptoms: This takes the form of a small, flesh colored papule that has recently changed shape. This is without any associated pain, itching, bleeding, or rapid growth. Onset/Duration: Present for many years, changed shape two months ago Initiating/Antecedent Event: None identified. No trauma to her knowledge that would have made it change shape. Alleviating Factors: None identified Exacerbating Factors: None identified Treatments Attempted: None to date Problem 2: Acne Location: Face Quality and Severity of Symptoms: This takes the form of tender red bumps and pustules along with whiteheads and blackheads. Onset/Duration: 2 months Initiating/Antecedent Event: None identified Alleviating Factors: None identified Exacerbating Factors: This is worsened with her menstrual cycle. Treatments Attempted: OTC benzoyl peroxide to minimal help. Of note, the patient is currently on an OCP but is not sexually active. The patient notes no other specific concerns. The patient notes no other lesions on the head, neck, trunk or extremities that, over the last year, not otherwise addressed, appear to be rapidly growing,changing color, bleeding, itching, or causing pain or have required treatment of anykind; this includes the patient???s moles taking the form of light brown to dark brown to flesh colored patches and bumps of skin. Review of Systems: Constitutional: No unexpected weight loss, no night sweats, no excessive fatigue Ear, nose, and throat: No epistaxis. Hematology: No unexpectedly heavy bleeding with procedures. Endocrine: No excessive heat or cold intolerance Integument: No other skin lesions Cardiovascular: No chest pain Respiratory: No unusual difficulty breathing Neurology: No seizures Genitourinary: No blood in urine Gastro-intestinal: No blood in stool Otherwise, 10 of 14 systems reviewed and negative except where otherwise noted Allergies: Allergies as of 03/07/2017 - Neftaly as Reviewed 03/07/2017 Allergen Reaction Noted ??? Ceclor [cefaclor] Hives 12/09/2016 Medications: Current Outpatient Prescriptions Medication Sig ??? minocycline (DYNACIN) 100 MG tablet Take one tablet by mouth twice daily for two months, then once daily for two weeks, then once qviaf-bhccx-api for two weeks, then stop. ??? tretinoin (RETIN-A) 0.025 % cream Apply topically at bedtime. Apply a thin layer to entire face nightly, to gjtpc-wsroh-jestz, or as tolerated. Increase gradually with a goal of every night, or at least four nights a week. ??? norethindrone-ethinyl estradiol (11/18) 1-20 MG-MCG oral tablet Take 1 Tab by mouth one time a day for 90 days. No current facility-administered medications for this visit. Past Medical History: No known skin cancer or other known significant skin conditions. Family History: Family History Problem Relation Age of Onset ??? Breast Cancer Maternal Aunt X 3 ??? Breast Cancer Maternal Grandmother No known melanoma, psoriasis, or eczema. Social History: Social History Substance Use Topics ??? Smoking status: Never Smoker ??? Smokeless tobacco: None ??? Alcohol use None Comment: Socially, minimally Patient has never used tanning beds. Physical Exam: Vital Signs: Vitals: 03/07/17 1301 BP: 120/82 Pulse: 81 Height: 5' 4 (1.626 m) Weight: 101 lb (45.8 kg) BMI (Calculated): 17.34 Constitutional: The patient appears well nourished, appropriately groomed, and appears to be in no acute distress. Eyes: There is no conjuctival injection nor scleral icteris. Neck: There is no thyroid enlargement upon inspection or palpation. The trachea is midline. Pulmonary: breathing is quiet and non-labored without use of accessory muscles. Cardiovascular: There is no peripheral edema. The limbs are warm and appear well perfused. Extremities: There is no acral cyanosis or petechiae. Neurologic/Psychiatric: The patient is oriented to person, place and time. The patient's mood and affect is appropriate. Skin: Examination of the hair, scalp, head, neck, chest, abdomen, back, buttocks, genitalia, both upper extremities, and both lower extremities is performed. The areas are normal with the following exceptions: There are jdpae-qy-ujbe-brown macules over the areas examined. There are ioeca-kd-wvfi-brownand flesh colored macules and papules over the areas examined. There are 1 mm erythematous, partially blanchable papules scattered over the areas examined. There are few follicularly based open and closed comedones and erythematous papules and pustules over the face. There is no significant xerosis ofthe areas examined. There is level 0 Shen-Snow photodamage. Assessment and Plan: 1) Nevi - The patient's nevi all appear benign at today's exam, none meeting the threshold for biopsy - The ABCDEs of melanoma were reviewed with the patient - Recommend self skin surveillance on a monthly basis - The patient was encouraged to contact me for further recommendation should symptomatic or evolvingnevi develop. - This includes the lesion of concern on the patient's right lateral leg which though with slightly atypical pigmentary pattern does not appear overly concerning from a medical perspective. Given the recent change I have offered biopsy versus observation. The patient wishes to proceed with observationand she may contact us should the lesion continue to evolve or alternatively should it become symptomatic. 2) Ephelides: - The benign etiology of these common lesions was discussed. - The lack of a preventative treatment, except for sun protection, was discussed. - The fact that treatment of these lesions is cosmetic in nature was discussed. - The patient was instructed to contact me should symptoms develop or a rapid change in size or color occur, as they can have malignant degeneration, but no more so than normal skin. 3) Capillary hemangiomas: - The benign etiology of these common lesions was discussed. - The lack of a preventative treatment was discussed. - The fact that treatment of asymptomatic lesions is cosmetic in nature was discussed. - As all lesions are asymptomatic, I do not recommend therapy from a medical perspective today. - The patient was instructed to contact me should symptoms develop or a rapid change in size or color occur, as they can have malignant degeneration, but no more so than normal skin. 4) Acne: - The patient has moderate mixed comedonal and inflammatory acne. - The etiology of this condition was discussed. - There is no evidence of active scarring. - The patient was informed that this condition may take 8 to 12 weeks to begin to respond to the prescribed medical regimen. The patient was also informed that the acne may worsen over the first 4 to 6weeks, but to treat through the flare. - The patient was instructed that the regimen, especially the benzoyl peroxide wash and topical retinoid, may be irritating and drying to the skin. The patient was instructed to use a mild cleanser, such as Dove, and a non-comedogenic moisturizer, such as CeraVe, as needed. - The patient was instructed to use no prescription or etrp-lvg-gjjjynv anti- acne treatments except for those that I have prescribed. - I have prescribed tretinoin 0.025% cream to be used QHS, to ooria-ydvio-ozdyu, or as tolerated. Ifthe patient cannot tolerate the medication at least 4/7 days a week, the patient was instructed to contact me for further recommendations. This is to be used on the face only. - I have prescribed minocycline 100MG PO BID for a two months, followed by 100MG QDAY for two weeks,followed by 100MG Vzqhi-Eqgqz-Eja for two weeks. The patient was instructed that this medication will bind metals, and should be taken no sooner than 2 hours before and after metal containing supplements, such as an iron containing multivitamins, or metal containing antacids, such as Maalox or Tums. The patient was informed that this medicine may increase sensitivity to sunlight, increasing the likelihood and severity of sunburns; appropriate sun avoidance and protection was recommended. The patientwas also instructed on the risk of chemical esophagitis and was instructed to take the medication with a full glass of water and remain upright for at least 30 minutes after swallowing the medication. Follow-Up: 3 months Scribed by: Jazzy Pisano documented in this encounter Plan of Treatment Not on filedocumented as of this encounter Visit Diagnoses Diagnosis Acne vulgaris - Primary Other acne Capillary hemangioma Ephelides Other dyschromia Melanocytic nevus, unspecified location documented in this encounter Care Teams Director Of Employee Development Relationship Specialty Start Date End Date Minal Castro APRN, [employer] PCP - General Family Medicine 12/09/16 02/05/18 [facility] [place] [address] documented as of this encounter
--- OUTSIDE RECORDS SUMMARY | 2022-09-06 22:24 | XMS_ITS | Encounter Summary ---
:1990 Author Organization [facility] [employer] [facility] Address [address] [address] Phone Care Team Providers Name Role Phone Gerda Gan APRN, DNP Primary Care Provider [phone] Rosario Luevano APRN, FLOTATION OPERATOR Primary Care Provider [phone] Encounter Details Date Type Department Care Team Description 09/09/2019 Immunization [facility] Immunization CLINIC [address] [facility] [address] Social History Tobacco Use Types [...] as of this encounter Visit Diagnoses Diagnosis Need for prophylactic vaccination and in oculation against influenza documented in this encounter Orders Immunization/Injection Count Last Ordered Date First O rdered Date PRESERVATIVE FREE QUAD FLUZONE (36MO+) + 1 019 ADMIN documented in this encounter Care Teams Editor School Photograph Relationship Specialty Start Date End Date Gerda Gan APRN, DNP PCP - General Family Medicine 02/06/18 03/19/[address] [place] [id number] Rosario Luevano APRN, FLOTATION OPERATOR PCP - General Family Medicine 03/20/[address] [place] [id number] documented as of this encounter
--- OUTSIDE RECORDS SUMMARY | 2022-09-06 22:24 | XMS_ITS | Encounter Summary ---
:1990 Author Organization [employer] Address [address] [place] [id number] Phone Care Team Providers Name Role Phone Gerda Gan APRN, TWIN Primary Care Provider [phone] Encounter Details Date Type Department Care Team Description 01/29/2019 Travel Social History Tobacco Use Types Packs/Day [...] on filedocumented in this encounter Care Teams Account Strategist Relationship Specialty Start Date End Date Gerda Gan, SULAIMAN, DNP PCP - General Family Medicine 02/06/18 03/19/[address] [place] [address] documented as of this encounter
--- OUTSIDE RECORDS SUMMARY | 2022-09-06 22:24 | XMS_ITS | Encounter Summary ---
:1990 Author Organization [employer] Address [address] [address] Phone Care Team Providers Name Role Phone Gerda Gan APRN, TWIN Primary Care Provider [phone] Reason for Visit Reason Comments Physical control refill Encounter Details Date Type Department Care Team Description 03/15/2019 Office Visit [facility] Rosario Luevano contraceptive pill [facility], KIZZY P surveillance MEDICINE [facility] [place] [address] [place] [address] [phone] Social History Tobacco Use Types Packs/Day Years [...] ??F) 03/15/2019 2:27 PM CDT Respiratory Rate - - Oxygen Saturation 100% 03/15/2019 2:27 PM CDT Inhaled Oxygen Concentration - - Weight 45.4 kg (100 lb) 03/15/2019 2:27 PM CDT Height 162.6 cm (5' 4) 03/15/2019 2:27 PM CDT Body Mass Index 17.16 03/15/2019 2:27 PM CDT documented in this encounter Ordered Prescriptions Prescription Sig Dispensed Refills Start Date End Date traZODone (DESYREL) 50 MG Take 1 Tab by 90 Tab 3 019 01/29/2020 tablet mouth at bedtime. norethindrone-ethinyl Take 1 Tab by 84 Tab 3 03/15/2019 03/20/2020 estradiol (11/18) mouth one time a 1-20 MG-MCG oral day. tabletIndications: Oral contraceptive pill surveillance documented in this encounter Progress Notes Rosario Luevano, REVENUE CYCLE ANALYST, SPRINKLER DRIVER - 03/15/2019 2:30 PM CDT REASON FOR VISIT: Shivani Meyer is a 28 year old female who presents for a general medical exam. HISTORY OF PRESENT ILLNESS: Doing well, anxiety is still present but she is able to sleep with the trazodone. Does not want any other medications for anxiety. Denies any thoughts of suicide or self harm. The following issues were addressed today: Routine healthcare maintenance Pap in 2018 At this time, past medical history, current medications, allergies and drug sensitivities, immunizations, habits and life style, family history, and social history are reviewed and updated. Patient Active Problem List Diagnosis ??? Dysmenorrhea Past Medical History: Diagnosis Date ??? Anxiety ??? Dysmenorrhea Past Surgical History: Procedure Laterality Date ??? WISDOM TOOTH EXTRACTION Outpatient Medications Marked as Taking for the 03/15/19 encounter (Office Visit) with Rosario Luevano APRN, CNP Medication Sig ??? norethindrone-ethinyl estradiol (11/18) 1-20 MG-MCG oral tablet Take 1 Tab by mouth one time a day. ??? traZODone (DESYREL) 50 MG tablet Take 1 Tab by mouth at bedtime. ALLERGIES/DRUG SENSITIVITIES: Allergies as of 03/15/2019 - Reviewed 03/15/2019 Allergen Reaction Noted ??? Ceclor [cefaclor] Hives [...] Hx ??? Colon Cancer Negative Family Hx Family Status Relation Status ??? Mo Alive ??? Fa Alive ??? MGMo ??? MGFa ??? PGMo Alive ??? PGFa ??? NEGATIVE FAM (Not Specified) SOCIAL HISTORY/HABITS/LIFESTYLE: Social History Socioeconomic History ??? Marital status: [...] file Gets together: Not on file Attends faith service: Not on file Active member of [...] She is . 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 From [facility] originally. OBSTETRIC HISTORY: OB History Para Term AB Living 0 0 0 0 0 0 SAB TAB Ectopic Molar Multiple Live Births 0 0 0 0 0 0 Review of Systems: Constitutional: no weight loss, fever, night sweats Integumentary: no rashes, pigmentation changes, or lesions of concern Head/eyes/ears/nose/throat: denies headache, ear pain or loss of hearing, blurred or double vision, nasal discharge or sore throat. Respiratory: no cough or shortness of breath [...] symptoms, spells, memory changes Psychologic: Positive for: anxiety Physical Exam: Vitals: 03/15/19 1427 BP: 104/70 Pulse: 90 Temp: 36.7 ??C (98.1 ??F) TempSrc: Temporal Height: 5' 4 (1.626 m) Weight: 100 lb (45.4 kg) SpO2: 100% BMI (Calculated): 17.16 GENERAL APPEARANCE: Healthy; alert and oriented X3; no acute distress SKIN: Normal without rashes, moles, or suspicious lesions HEAD: Atraumatic; normocephalic; without lesions EYES: Conjunctiva, corneas and eyelids normal; pupils equal, round, reactive to light and accommodation (PERRLA); extraocular movements intact (EOMI) EARS: External ears normal; ear canals normal; tympanic membranes normal NOSE: Nares normal; septum midline; mucosa normal MOUTH/OROPHARYNX: Normal lips, tongue, buccal mucosa and pharynx without lesions NECK: Supple with no nodes, jugular venous distention, thyromegaly or bruits LUNGS: Normal respirations; good expansion with good diaphragmatic excursion; clear to auscultation and percussion with no extra sounds HEART: Regular rhythm and rate; S1 and S2 normal; no murmurs, heaves, thrills, clicks or rubs ABDOMEN: Bowel sounds normal; soft; no masses or tenderness, no hepatosplenomegaly VASCULAR: No jugular venous distention; normal carotid pulses, without bruits; abdominal aorta without enlargement, aneurysm or bruit; peripheral pulses normal LYMPHATIC: Normal nodes throughout without enlargement or tenderness; no hepatosplenomegaly NEUROLOGIC: Alert and oriented times 3; mental status normal; cranial nerves II- XII normal; muscle strength 5/5, and symmetric; reflexes full and symmetric MUSCULOSKELETAL: Spine well aligned with normal range of motion and without tenderness; neck normal,with good range of motion; muscles normal; joints without abnormalities; straight leg raises negative bilaterally EXTREMITIES: No cyanosis, clubbing or edema; peripheral pulses normal; no varicose veins; joints normal PSYCHIATRIC: Mental status normal; no psychiatric issues ASSESSMENT: Normal Physical Exam PLAN:return in one year discussed oral contraceptive risks/benefits, refilled for 1 year Weight Management / BMI follow-up plan:BMI noted and no action needed at this time. documented in this encounter Plan of Treatment Not on filedocumented as of this encounter Visit Diagnoses Diagnosis Oral contraceptive pill surveillance Surveillance of previously prescribed co ntraceptive pill documented in this encounter Discontinued Medications Medication Sig Discontinue Reason Start Date End Date norethindrone-ethinyl Take 1 Tab by Reorder 03/12/201903/15 estradiol (11/18) mouth one time a 1-20 MG-MCG oral day. tabletIndications: Oral contraceptive pill surveillance traZODone (DESYREL) 50 MG TAKE 1 TAB BY Reorder 04/05/2018 0 03/15/2019 tablet MOUTH AT BEDTIME. documented as of this encounter Care Teams Tool Programmer Relationship Specialty Start Date End Date Gerda Gan APRN, DNP PCP - General Family Medicine 02/06/18 03/19/[address] [place] [address] documented as of this encounter
--- OUTSIDE RECORDS SUMMARY | 2022-09-06 22:24 | XMS_ITS | Encounter Summary ---
:1990 Author Organization [employer] Address [address] [place] [address] Phone Care Team Providers Name Role Phone Gerda Gan APRN, TWIN Primary Care Provider [phone] Encounter Details Date Type Department Care Team Description 09/09/2019 Travel Social History Tobacco Use Types Packs/Day [...] on filedocumented in this encounter Care Teams Cycle Consultant Relationship Specialty Start Date End Date Gerda Gan, SULAIMAN, DNP PCP - General Family Medicine 02/06/18 03/19/[address] [place] [address] documented as of this encounter
--- OUTSIDE RECORDS SUMMARY | 2022-09-06 22:24 | XMS_ITS | Encounter Summary ---
:1990 Author Organization [employer] Address [address] [address] Phone Care Team Providers Name Role Phone Gerda Gan APRN, TWIN Primary Care Provider [phone] Reason for Visit Reason Onset Date Comments Appointment 09/03/2018 Encounter Details Date Type Department Care Team Description 09/03/2018 Telephone [employer] [facility] Anna Tom Appointment [facility] [address] [place] [address] Social History Tobacco Use Types Packs/Day Years [...] this encounter Miscellaneous Notes Telephone Encounter - Anna Tom - 09/03/2018 10:47 AM CST Author attempted to contact patient regarding reschedule/wait list yes Appointment to be rescheduled 02/07/19 with Gerda Gan MBLER EQUIPMENT documented in this encounter Plan of Treatment Not on filedocumented as of this encounter Visit Diagnoses Not on filedocumented in this encounter Care Teams Drawer In Jacquard Loom Relationship Specialty Start Date End Date Gerda Gan APRN, DNP PCP - General Family Medicine 02/06/18 03/19/[address] [place] [address] documented as of this encounter
--- OUTSIDE RECORDS SUMMARY | 2022-09-06 22:24 | XMS_ITS | Encounter Summary ---
:1990 Author Organization [employer] Address [address] [address] Phone Care Team Providers Name Role Phone Gerda Gan APRN, TWIN Primary Care Provider [phone] Reason for Visit Reason Onset Date Comments [facility] 01/03/2019 Encounter Details Date Type Department Care Team Description 01/03/[address] [facility] CARE MANAGEMENT Destiny Schwartz [facility] [address] [place] [address] Social History Tobacco Use Types Packs/Day Years [...] this encounter Miscellaneous Notes Telephone Encounter - Destiny Schwartz - 01/03/2019 11:14 AM CST Patient unable to be reached after third phone call, Welcome to the Program Letter sent. Appointmentwith Primary Care is due. EDICAL ENGINEERING TECHNOLOGIST documented in this encounter Plan of Treatment Not on filedocumented as of this encounter Visit Diagnoses Not on filedocumented in this encounter Care Teams Alteration Specialist Relationship Specialty Start Date End Date Gerda Gan APRN, DNP PCP - General Family Medicine 02/06/18 03/19/[address] [place] [address] documented as of this encounter
--- OUTSIDE RECORDS SUMMARY | 2022-09-06 22:24 | XMS_ITS | Encounter Summary ---
:1990 Author Organization [employer] Address [address] [place] [address] Phone Care Team Providers Name Role Phone Gerda Gan APRN, TWIN Primary Care Provider [phone] Encounter Details Date Type Department Care Team Description 01/18/2019 Travel Social History Tobacco Use Types Packs/Day [...] on filedocumented in this encounter Care Teams Opthalmic Tech Relationship Specialty Start Date End Date Gerda Gan, SULAIMAN, DNP PCP - General Family Medicine 02/06/18 03/19/[address] [place] [address] documented as of this encounter
--- OUTSIDE RECORDS SUMMARY | 2022-09-06 22:24 | XMS_ITS | Encounter Summary ---
:1990 Author Organization [employer] Address [address] [address] Phone Care Team Providers Name Role Phone Rosario Luevano APRN, CNP Primary Care Provider [phone] Reason for Visit Reason Comments Physical Encounter Details Date Type Department Care Team Description 03/20/2020 Telehealth [facility] Rosario Luevano sical exam (Primary Dx); [facility] CN P Oral contraceptive pill surveillance; MEDICINE [address] Anxiety; [address] [place] [address] [place] [address] [phone] Social History Tobacco Use Types Packs/Day Years [...] / COVID-19? documented as of this encounter Ordered Prescriptions Prescription Sig Dispensed Refills Start Date End Date norethindrone (Micronor, Take 1 Tab by 3 Package 3 03/20/20 20 02/22/2021 Jahaira Cuevas) 0.35 MG mouth one time a tabletIndications: Oral day. contraceptive pill surveillance traZODone (Desyrel) 50 MG Take 1 Tab by 90 Tab 3 020 02/22/2021 tabletIndications: Anxiety, mouth at bedtime. Difficulty sleeping documented in this encounter Progress Notes Rosario Luevano, SULAIMAN, ELEMENTARY SCHOOL BAND DIRECTOR - 03/20/2020 10:30 AM CDT Family Medicine Progress Note Subjective History of Present Illness: Shivani is here today for health maintenance exam. Patient recently moved to the [facility] for a job change and will be establishing with a new pcp there eventually. Does struggle with anxiety that manifests as sleeplessness. Taking trazodone at bedtime and this helps. Things are manageble at this time, she is open to counselor. Did see a counselor in college. She will contact the clinic when she finds out who her new insurance will cover. No thoughts of suicide or self harm, does not struggle with depressive symptoms. Patient is using combined oral contraceptives for control. Her aunt was recently diagnosed with breast cancer, she also has a grandmother that has breast cancer on the same side which is her mother's side. The following portions of the patient's history were reviewed and updated as appropriate: Allergies Allergen Reactions ??? Ceclor [Cefaclor] Hives Outpatient Medications Marked as Taking for the 03/20/20 encounter (Telehealth) with Greg Luevano APRN, CNP Medication Sig ??? traZODone (Desyrel) 50 MG tablet Take 1 Tab by mouth at bedtime. ??? norethindrone (Micronor, Faith, Jahaira) 0.35 MG tablet Take 1 Tab by mouth one time a day. Past Medical History: Diagnosis Date ??? Anxiety ??? Dysmenorrhea Past Surgical History: Procedure Laterality Date ??? WISDOM TOOTH EXTRACTION Family History Problem Relation Age of Onset ??? Musculo-skeletal Disease Mother Fusions - scoliosis, MVA ??? No Known Problems Father ??? Breast Cancer Maternal Grandmother and 3/4 sisters ??? Cardiovascular Disease Maternal Grandfather ??? Ophthalmic Disease Paternal Grandmother glaucoma ??? Breast Cancer Maternal Aunt 52 ??? Diabetes Negative Family Hx ??? Colon Cancer Negative Family Hx Social History Tobacco Use ??? Smoking status: Never Smoker ??? Smokeless tobacco: Never Used Substance Use Topics ??? Alcohol use: Yes Frequency: 2-3 times a week Drinks per session: 1 or 2 Binge frequency: Never Comment: Socially, minimally ??? Drug use: No ROS: Constitutional: no weight loss, fever, night sweats Nutrition: eats regular diet with adequate water intake Integumentary: no rashes, pigmentation changes, or lesions of concern Head/eyes/ears/nose/throat: denies headache, ear pain or loss of hearing, blurred or double vision, nasal discharge or sore throat. Breasts: denies breast pain, tenderness, discharge, lumps Respiratory: no cough or shortness of breath Cardiovascular: no chest pains or palpitations Endocrine: no history of polyuria, polydipsia, skin or hair changes, heat or cold intolerance. Feet get cold during the day and hot at night. Lymphatic: denies lymph node tenderness or swelling Gastrointestinal: no dysphagia, abdominal pain, nausea, vomiting, change in bowel habits, melena, hematochezia Genitourinary: no change in urination or blood in urine Gynecologic: no abnormal vaginal bleeding, pelvic pain or vaginal discharge Musculoskeletal: no joint pain or swelling Neurologic: no history of focal neurologic symptoms, spells, memory changes Psychologic: anxiety but no depression. Objective Vital Signs: There were no vitals filed for this visit. There is no height or weight on file to calculate BMI. Physical Exam Constitutional: General: She is not in acute distress. Appearance: Normal appearance. She is not ill-appearing or diaphoretic. HENT: Head: Normocephalic and atraumatic. Right Ear: External ear normal. Left Ear: External ear normal. Nose: Nose normal. Mouth/Throat: Mouth: Mucous membranes are moist. Eyes: General: No scleral icterus. Right eye: No discharge. Left eye: No discharge. Conjunctiva/sclera: Conjunctivae normal. Pulmonary: Effort: Pulmonary effort is normal. No respiratory distress. Skin: General: Skin is dry. Coloration: Skin is not pale. Neurological: Mental Status: She is alert and oriented to person, place, and time. Psychiatric: Mood and Affect: Mood normal. Behavior: Behavior normal. Thought Content: Thought content normal. Judgment: Judgment normal. Assessment Shivani Meyer is a 29 year old female. The primary encounter diagnosis was Anxiety. Diagnoses of Oral contraceptive pill surveillance and Difficulty sleeping were also pertinent to this visit. Plan 1. Physical exam Pap: due next year Mammogram: Early screening due to family history, recommend high risk breast clinic Colonoscopy: start at 50 Healthy diet and exercise recommended Immunizations: UTD 2. Oral contraceptive pill surveillance Risks of estrogen-based control reviewed, particularly in the setting of the recent breast cancer diagnosis of her maternal aunt in addition to her maternal grandmother. Patient is interested in progesterone only options, and will be started on the norethindrone. Instructions on use given. Discussed side effects, risks and benefits of the medication and need for follow up if any side effects experienced. - norethindrone (Micronor, Faith, Jahaira) 0.35 MG tablet; Take 1 Tab by mouth one time a day. Dispense: 3 Package; Refill: 3 3. Anxiety Contact clinic if symptoms are worsening or not controlled. - traZODone (Desyrel) 50 MG tablet; Take 1 Tab by mouth at bedtime. Dispense: 90 Tab; Refill: 3 4. Difficulty sleeping Continue on current medication. - traZODone (Desyrel) 50 MG tablet; Take 1 Tab by mouth at bedtime. Dispense: 90 Tab; Refill: 3 Follow-Up: [facility] 1. Total time spent 15 minutes. 12 minutes for Physical and oral contraceptive pill surveillance, 3 minutes for anxiety and difficulty sleeping 50% or more in counseling or coordination of care. 2. The mode of transmission of the telemedicine service: interactive videoconference Rosario Luevano APRN, CNP 03/20/2020 documented in this encounter Plan of Treatment Not on filedocumented as of this encounter Visit Diagnoses Diagnosis Physical exam - Primary Oral contraceptive pill surveillance Surveillance of previously prescribed co ntraceptive pill Anxiety Anxiety state, unspecified Difficulty sleeping Sleep disturbance, unspecified documented in this encounter Discontinued Medications Medication Sig Discontinue Reason Start Date End Date norethindrone-ethinyl Take 1 Tab by Course of treatment 03/15/2019 03/20/2020 estradiol (11/18) mouth one time a completed 1-20 MG-MCG oral day. tabletIndications: Oral contraceptive pill surveillance traZODone (Desyrel) 50 MG TAKE 1 TAB BY Reorder 01/29/2020 0 03/20/2020 tablet MOUTH AT BEDTIME. documented as of this encounter Care Teams Pediatric Oncology Nurse Relationship Specialty Start Date End Date Rosario Luevano APRN, CNP PCP - General Family Medicine 03/20/[address] [place] [phone] documented as of this encounter
--- OUTSIDE RECORDS SUMMARY | 2022-09-06 22:25 | XMS_ITS | Encounter Summary ---
:1990 Author Organization [employer] Address [address] [address] Phone Care Team Providers Name Role Phone Minal Castro APRN, [facility] Primary Care Provider Reason for Referral (Routine) - Closed Specialty Diagnoses / Procedures Referred By Contact Refer red To Contact Dermatology Diagnoses Atypical pigmented skin lesion Minal Castro APRN, [facility] Dermatology [facility] [address] [facility] [address] [place] [address] [place] [address] Referral ID Status Reason Start Date Expiration Date Visits Requ ested Visits Authorized [id number] Closed 12/09/2016 06/22/2018 1 1 Comments Primary Reason for Referral: Lesion: Eva eduling time frame: Next Available. ##FOR SCHEDULERS ONLY: Scheduling Instru ctions: Change department to [facility] Dermatology. Schedule next available CON SULT (21) with subgroup LESION (888). If [facility] the [facility] 3 [facility], please schedule as an OVS (2) with the same provider instead o f the Consult. ## ## If access is not available within req uired time frame please call the Dermatology registration staff at [phone]## Arrive 20 minutes before scheduled appoi ntment. ? ? Bring an updated medication list Location of Dermatology: [facility] - 2nd Floor [place] or #: [phone] Fax #: [phone] LE PHLEBOTOMIST Reason for Visit Reason Comments Physical last one was about a year ag o. 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 Anxiety has mild anxiety issues but never been on anything Encounter Details Date Type Department Care Team Description 12/09/2016 Office Visit [facility] Minal Castro, Atypical pigmented skin lesion (Primary Dx); [facility] Counseling for control, oral contr aceptives; [address] [facility] [address] [facility] Acne vulgaris; [facility] [address] Other insomnia; [place] [address] [place] [address] Anxiety [phone] (Wo rk) Social History Tobacco Use Types [...] Sign Reading Time Taken Comments Blood Pressure 115/68 12/09/2016 2:09 PM MOBILE PHLEBOTOMIST Pulse 107 12/09/2016 2:09 PM MOBILE PHLEBOTOMIST Temperature 36.5 ??C (97.7 ??F) 12/09/2016 2:09 PM MOBILE PHLEBOTOMIST Respiratory Rate - - Oxygen Saturation 99% 12/09/2016 2:09 PM MOBILE PHLEBOTOMIST Inhaled Oxygen Concentration - - Weight 47.3 kg (104 lb 3.2 oz) 12/09/2016 2:09 PM MOBILE PHLEBOTOMIST Height 162.6 cm (5' 4) 12/09/2016 2:09 PM MOBILE PHLEBOTOMIST Body Mass Index 17.89 12/09/2016 2:09 PM MOBILE PHLEBOTOMIST documented in this encounter Ordered Prescriptions Prescription Sig Dispensed Refills Start Date End Date norethindrone-ethinyl Take 1 Tab by mouth 3 Package 4 12/0903/09/2017 estradiol (JUNEL FE one time a day for 90 11/18) 1-20 MG-MCG oral days. tablet Benzoyl Peroxide 4 % Apply 1 g topically 1 Bottle 2 201601/08/2017 Liquid every 12 hours for 30 days. documented in this encounter Progress Notes Minal Castro, SULAIMAN, ANGLEDOZER OPERATOR - 12/09/2016 2:00 PM CST Subjective: Patient ID: Shivani Melgar is 25 year old and female. Chief Complaint: Here for physical, see if she needs pap smear, anxiety, refill medications. HPI She is getting this summer and indicates she had one pap several years ago and was normal. Has not been sexually active. She is on oral contraceptives for her acne and dysmenorrhea. She started them six months ago, having some irregular spotting. She does have some anxiety and will wake up during the night and have trouble falling back asleep. She finds her mind thinking excessively. Denies any changes in weight or appetite. Enjoys her job. She has a lesion to her right lateral calf that is new and appears different from her other freckles. She does wear sunscreen but would like it checked. She also still gets acne lesions and doesn't want any for her wedding in March. Review of Systems Constitutional: Negative. HENT: Negative. Eyes: Negative. Respiratory: Negative. Cardiovascular: Negative. Gastrointestinal: Negative. Endocrine: Negative. Genitourinary: Negative. Musculoskeletal: Negative. Skin: Negative. Allergic/Immunologic: Negative. Neurological: Negative. Hematological: Negative. Psychiatric/Behavioral: Positive for sleep disturbance. Negative for agitation, behavioral problems,self-injury and suicidal ideas. The patient is nervous/anxious. Past medical, surgical, family and social history reviewed and acknowledged in EMR. Objective: Vitals: 12/09/16 1409 BP: 115/68 Pulse: 107 Temp: 36.5 ??C (97.7 ??F) TempSrc: [facility] Height: 5' 4 (1.626 m) Weight: 104 lb 3.2 oz (47.3 kg) SpO2: 99% BMI (Calculated): 17.89 Physical Exam Constitutional: She is oriented to person, place, and time. She appears well- developed and well-nourished. No distress. HENT: Head: Normocephalic. Right Ear: External ear normal. Left Ear: External ear normal. Nose: Nose normal. Mouth/Throat: Oropharynx is clear and moist. Eyes: Pupils are equal, round, and reactive to light. Neck: Normal range of motion. Neck supple. No thyromegaly present. Cardiovascular: Normal rate and regular rhythm. Pulmonary/Chest: Effort normal and breath sounds normal. Abdominal: Bowel sounds are normal. Musculoskeletal: Normal range of motion. She exhibits no edema. Lymphadenopathy: She has no cervical adenopathy. Neurological: She is alert and oriented to person, place, and time. Skin: Skin is warm and dry. To lateral aspect of right calf is a small lesion with irregular border, red in color. Psychiatric: She has a normal mood and affect. Her behavior is normal. Judgment and thought content normal. Nursing note and vitals reviewed. Assessment: The primary encounter diagnosis was Atypical pigmented skin lesion. Diagnoses of Counseling for control, oral contraceptives, Acne vulgaris, Other insomnia, and Anxiety were also pertinent to this visit. Plan: 1. Referred to Derm to see if lesion needs biopsy. 2. Benzolyl peroxide wash. 3. Discussed oral contraceptives and other forms of contraception and decided to stay on her oral meds. I explained proper usage. She can piggy back ifshe wants. 4. Immunizations are up to date. 5. Discussed anxiety mgm and presently she wants to try and manage without meds. To trial melatonin or tylenol pm for sleep. LE PHLEBOTOMIST documented in this encounter Plan of Treatment Scheduled Referrals Name Type Priority Associated Diagnoses Order S chedule APPT WITH DERMATOLOGY REFERRAL Routine Atypical pigmented skin Ordered: 12/09/2016 [place] lesion documented as of this encounter Visit Diagnoses Diagnosis Atypical pigmented skin lesion - Primary Counseling for control, oral contr aceptives General counseling for prescription of o ral contraceptives Acne vulgaris Other acne Other insomnia Anxiety Anxiety state, unspecified documented in this encounter Discontinued Medications Medication Sig Discontinue Reason Start Date End Date norethindrone-ethinyl Take 1 Tab by mouth 12/09/2016 12/09/2016 estradiol (11/18) one time a day. 1-20 MG-MCG oral tablet documented as of this encounter Historical Medications This list may reflect changes made after this encounter. Medication Sig Dispensed Refills Start Date End Date norethindrone-ethinyl Take 1 Tab by mouth 3 Package 0 12/0912/09/2016 estradiol (11/18) one time a day. 1-20 MG-MCG oral tablet added in this encounter Care Teams Power Plant Superintendent Relationship Specialty Start Date End Date Minal Castro, SULAIMAN, ANGLEDOZER OPERATOR PCP - General Family Medicine 12/09/16 02/05/18 [address] [place] [address] documented as of this encounter
--- OUTSIDE RECORDS SUMMARY | 2022-09-06 22:25 | XMS_ITS | Clinical Summary ---
:1990 Author Organization [employer] [place] [address] Care Team Providers Name Role Phone Unavailable Primary Care Provider Unavailable Allergies Not on File Medications Not on file Active Problems Not on file Social History Tobacco Use Types Packs/Day Years Used Date Never Assessed Sex Assigned at Date Recorded Not on file Plan of Treatment Health Maintenance Due Date Last Done Comments COVID-19 vaccine series (#1) 07/01/1991 Tdap 2001 Depression screening for age 12+ 2002 BMI (ht and wt on same day) for age 18+ 2008 Hepatitis C screening for age 18-79 2008 Tetanus booster 2010 Influenza for age 9-49 06/30/2022 Pap test for age 21-65 04/20/2024 04/20/2021, 04/20/2021 Results Not on filefrom Last 3 Months Insurance Payer Benefit Plan / Subscriber ID Effective Dates Phone Addre ss Type Group [employer] [id number] 2020-Present [address] [place] [address]
--- NOTE | 2022-09-20 08:49 | W.PM.SLEEP ---
Sleep Study Details Details Interpreting Provider: Kyree Valenzuela MD Date of Sleep Study: 09/06/22 Sleep Study Details: STUDY TYPE:? Home ? BMI:? 29.9 ORDERING PROVIDER:? Talib INDICATION:? Concerns about sleep apnea ? SLEEP SUMMARY:? 483 minutes monitored RESPIRATORY SUMMARY:? AHI is 1.6, supine 4.3, left lateral 1.4, right lateral 1.1 Low oxygen was 91 Snoring% 10.2 PERIODIC LIMB MOVEMENTS OF SLEEP:? Not recorded CARDIAC:? 58-129, mean 75.5 IMPRESSION:? This study is not demonstrate clinically significant obstructive sleep apnea RECOMMENDATION: If sleep disorder is strongly suspected an in-lab study is recommended.
== END 2022-09-06 22:19 | disposition home or self-care (01) ==
LOC: SLEEP 22:19
PROVIDERS: PCP Family Medicine; Visit Provider Family Medicine
DX: G47.19 Other hypersomnia (principal); R06.83 Snoring
CPT/HCPCS: 95806